=== PATIENT | male | born 1945 | race Caucasian/White ===

== ENCOUNTER 2022-07-12 14:56 | Inpatient (IN) | payer MEDICARE, BC ==
--- NOTE | 2022-07-12 15:38 | ED ---
General Adult HPI - General Chief complaint: Fall Stated complaint: Fall/shoulder rib injury Time Seen by Provider: 07/12/22 15:07 Source: patient Mode of arrival: EMS Limitations: no limitations - History of Present Illness Initial comments: Dictation was produced using codesy dictation software. please excuse any grammatical, word or spelling errors. Chief Complaint: 77-year-old male presents emergency department after fall. History of Present Illness: Patient 77-year-old male presents emergency department after fall. Patient was walking down some steps to the garage when he missed step. He fell landing sideways. He landed on his left side. After the fall he spit complaining of right hip pain, left upper back pain, left shoulder pain and left elbow pain. Denies any head injury. No loss of consciousness. Does not take any anticoagulation medications. Denies any abdominal pain. The ROS documented in this emergency department record has been reviewed and confirmed by me. Those systems with pertinent positive or negative responses have been documented in the HPI. All other systems are other negative and/or no ncontributory. PHYSICAL EXAM: General Impression: Alert and oriented x3, not in acute distress HEENT: Normocephalic atraumatic, extra-ocular movements intact, pupils equal and reactive to light bilaterally, mucous membranes moist. Cardiovascular: Heart regular rate and rhythm Chest: Able to complete full sentences, no retractions, no tachypnea Abdomen: abdomen soft, non-tender, non-distended, no organomegaly Musculoskeletal: Pulses present and equal in all extremities, no peripheral edema, or tenderness to the left elbow and left shoulder. No palpable tenderness to the left humerus left forearm left wrist Motor: no focal deficits noted Neurological: CN II-XII grossly intact, no focal motor or sensory deficits noted Skin: Intact with no visualized rashes Psych: Normal affect and mood ED course: 77-year-old well-appearing male presents emergency department after a trip and fall down one to 2 steps. Does not take any correlation medications. Patient is not a candidate for trauma level activation. Vital signs upon arrival are within acceptable limits. Patient in no acute distress at the bedside. No obvious traumatic abnormality seen on physical exam. Nursing notes and chart review was performed EKG interpreted by me: Ventricular rate 81, sinus rhythm,. Interval to 36, QRS 77, QTc 412. No NV prolongation, no QTC prolongation, no ST or T-wave changes noted. Overall, this EKG is unremarkable Was pt. sent in by a medical professional or institution (YARIEL Shirley, CONTROL OPERATOR, urgent care, hospital, or correction...) When possible be specific @ -No Did you speak to anyone other than the patient for history (EMS, parent, family, police, friend...)? What history was obtained from this source @ - at the bedside Did you review nursing and triage notes (agree or disagree)? Why? @ -I reviewed and agree with nursing and triage notes Were old charts reviewed (outside hosp., previous admission, EMS record, old EKG, old radiological studies, urgent care reports/EKG's, correction records)? Report findings @ -No old charts were reviewed Differential Diagnosis (chest pain, altered mental status, abdominal pain women, abdominal pain men, vaginal bleeding, musculoskeletal, weakness, fever, dyspnea, syncope, headache, dizziness, GI bleed, back pain, seizure, CVA, palpatations, mental health)? @ -Arm fracture, arm sprain, shoulder dislocation, head contusion, intracranial bleed, cervical spine fracture, rib fracture, chest contusion EKG interpreted by me (3pts min.). @ -see above X-rays interpreted by me (1pt min.). @ -Abdomen pelvis x-ray shows no acute processes. Her femur x-rays negative. Elbow x-ray is nonacute. Shoulder x-ray shows acute comminuted proximal humerus fracture. CT interpreted by me (1pt min.). @ -CT The scan of the head and C-spine shows no acute processes. There are acute left anterior lateral ribs 4 through 7 fractures without displacement. U/S interpreted by me (1pt. min.). @ -None done What testing was considered but not performed or refused? (CT, X-rays, U/S, labs)? Why? @ -See above What meds were considered but not given or refused? Why? @ -See above Did you discuss the management of the patient with other professionals (professionals i.e. YARIEL Shirley, CONTROL OPERATOR, lab, RT, psych nurse, social sciences instructor, coordinate measuring machine technician, teacher, minesweeping officer, family independence case manager)? Give summary @ -Case discussed with on-call trauma surgeon who will accept patient's care. Was smoking cessation discussed for >3mins.? @ -No Was critical care preformed (if so, how long)? @ -No Were there social determinants of health that impacted care today? How? (Homelessness, low income, unemployed, alcoholism, drug addiction, transportation, low edu. Level, literacy, decrease access to med. care, detention, rehab)? @ -No Was there de-escalation of care discussed even if they declined (Discuss DNR or withdrawal of care, Hospice)? DNR status @ -No What co-morbidities impacted this encounter? (DM, HTN, Smoking, COPD, CAD, Cancer, CVA, ARF, Chemo, Hep., AIDS, mental health diagnosis, sleep apnea, morbid obesity)? @ -None Was patient admitted / discharged? Hospital course, mention meds given and route, prescriptions, significant lab abnormalities, going to OR and other pertinent info. @ -77-year-old male with multiple comorbidities presents to the ER after trip and fall. He has comminuted left proximal humeral fracture and [id number] rib fractures. Patient in significant pain. Patient high risk for worsening pulmonary function due to injuries. Patient grew for admission. Admitted to trauma surgery team. Rib fracture order set ordered. Undiagnosed new problem with uncertain prognosis? @ -No Drug Therapy requiring intensive monitoring for toxicity (Heparin, Nitro, Insulin, Cardizem)? @ -No Were any procedures done? @ -splint application Diagnosis/symptom? Acute, or Chronic, or Acute on Chronic? Uncomplicated (without systemic symptoms) or Complicated (systemic symptoms)? @ -1. Acute fall, 2. Comminuted proximal humerus fracture on the left, 3. Acute complicated rib fractures 4 through 7 Side effects of treatment? @ -No Exacerbation, Progression, or Severe Exacerbation? @ -No Poses a threat to life or bodily function? How? (Chest pain, [place], [place], pneumonia, PE, COPD, DKA, ARF, appy, cholecystitis, CVA, Diverticulitis, Homicidal, Suicidal, threat to staff... and all critical care pts) @ -Yes - Related Data Home Medications Medication Instructions Recorded Confirmed Atorvastatin [Lipitor] 40 mg PO HS 07/12/22 07/12/22 Clopidogrel [Plavix] 75 mg PO DAILY 07/12/22 07/12/22 Furosemide [Lasix] 40 mg PO Q2D 07/12/22 07/12/22 Gabapentin [Neurontin] 300 mg PO TID PRN 07/12/22 07/12/22 Meloxicam [Mobic] 7.5 mg PO DAILY 07/12/22 07/12/22 Memantine [Namenda] 10 mg PO BID 07/12/22 07/12/22 Metoprolol Tartrate [Lopressor] 12.5 mg PO BID 07/12/22 07/12/22 Omeprazole [PriLOSEC] 40 mg PO DAILY 07/12/22 07/12/22 PARoxetine HCL 30 mg PO DAILY 07/12/22 07/12/22 Pioglitazone [Actos] 30 mg PO DAILY 07/12/22 07/12/22 Semaglutide [Ozempic] 1 mg SQ MO 07/12/22 07/12/22 Trospium Chloride [Sanctura XR] 60 mg PO DAILY 07/12/22 07/12/22 Turmeric Root Extract [Turmeric] 500 mg PO HS 07/12/22 07/12/22 Ubidecarenone [Co Q-10] 300 mg PO HS 07/12/22 07/12/22 Vitamin B Complex 1 cap PO DAILY 07/12/22 07/12/22 lisinopriL [Zestril] 10 mg PO HS 07/12/22 07/12/22 Allergies Allergy/AdvReac Type Severity Reaction Status Date / Time No Known Allergies Allergy Verified 07/12/22 16:10 Review of Systems ROS Statement: Those systems with pertinent positive or pertinent negative responses have been documented in the HPI. ROS Other: All systems not noted in ROS Statement are negative. Past Medical History Past Medical History: Diabetes Mellitus, Hyperlipidemia Additional Past Medical History / Comment(s): stroke 2016 History of Any Multi-Drug Resistant Organisms: None Reported Past Surgical History: Prostate Surgery Past Psychological History: No Psychological Hx Reported Smoking Status: Never smoker Past Alcohol Use History: None Reported Past Drug Use History: None Reported General Exam Limitations: no limitations Course Vital Signs 07/12/22 07/12/22 07/12/22 14:59 16:30 18:49 Temperature 98 F Pulse Rate 73 71 84 Respiratory 18 18 16 Rate Blood Pressure 161/85 149/73 160/79 O2 Sat by Pulse 95 98 95 Oximetry 07/12/22 19:39 Temperature Pulse Rate 84 Respiratory 16 Rate Blood Pressure 164/88 O2 Sat by Pulse 95 Oximetry Medical Decision Making - Lab Data Result diagrams: 07/12/22 15:36 07/12/22 17:11 Lab Results 07/12/22 07/12/22 Range/Units 15:36 17:11 WBC 10.1 (3.8-10.6) k/uL RBC 4.80 (4.30-5.90) m/uL Hgb 14.8 (13.0-17.5) gm/dL Hct 45.5 (39.0-53.0) % MCV 94.9 (80.0-100.0) fL MCH 31.0 (25.0-35.0) pg MCHC 32.6 (31.0-37.0) g/dL RDW 14.1 (11.5-15.5) % Plt Count 255 (150-450) k/uL MPV 8.3 Neutrophils % 76 % Lymphocytes % 14 % Monocytes % 6 % Eosinophils % 1 % Basophils % 1 % Neutrophils # 7.7 (1.3-7.7) k/uL Lymphocytes # 1.4 (1.0-4.8) k/uL Monocytes # 0.6 (0-1.0) k/uL Eosinophils # 0.1 (0-0.7) k/uL Basophils # 0.1 (0-0.2) k/uL Sodium 137 (137-145) mmol/L Potassium 4.0 (3.5-5.1) mmol/L Chloride 102 (98-107) mmol/L Carbon Dioxide 26 (22-30) mmol/L Anion Gap 9 mmol/L BUN 17 (9-20) mg/dL Creatinine 0.76 (0.66-1.25) mg/dL Est GFR (CKD-EPI)AfAm >90 (>60 ml/min/1.73 sqM) Est GFR (CKD-EPI)NonAf 89 (>60 ml/min/1.73 sqM) Glucose 161 H (74-99) mg/dL Calcium 8.7 (8.4-10.2) mg/dL Total Bilirubin 0.7 (0.2-1.3) mg/dL AST 29 (17-59) U/L ALT 28 (4-49) U/L Alkaline Phosphatase 92 (38-126) U/L Total Protein 6.6 (6.3-8.2) g/dL Albumin 4.1 (3.5-5.0) g/dL Lipase 31 (23-300) U/L Disposition Clinical Impression: Fall, Multiple trauma Disposition: ADMITTED IP TO THIS [facility] Condition: Serious Referrals: None,Stated [REFERRING] - 1-2 days Decision Time: 20:20
[2022-07-12 15:56] LABS: Basophils # (A) 0.1 k/uL (0-0.2); Basophils % (A) 1 %; Eosinophils # (A) 0.1 k/uL (0-0.7); Eosinophils % (A) 1 %; HCT 45.5 % (39.0-53.0); HGB 14.8 gm/dL (13.0-17.5); Lymphocytes # (A) 1.4 k/uL (1.0-4.8); Lymphocytes % (A) 14 %; MCHC 32.6 g/dL (31.0-37.0); MCV 94.9 fL (80.0-100.0); Mean Platelet Volume 8.3; Monocytes # (A) 0.6 k/uL (0-1.0); Monocytes % (A) 6 %; Neutrophils # (A) 7.7 k/uL (1.3-7.7); Neutrophils % (A) 76 %; Platelet Count 255 k/uL (150-450); RDW 14.1 % (11.5-15.5); WBC 10.1 k/uL (3.8-10.6)
[2022-07-12] MEDS ORDERED: MORPHINE SULFATE 4 MG/ML SYRINGE IV STA (16:22)
--- NOTE | 2022-07-12 16:35 | XR ---
EXAMINATION TYPE: XR shoulder complete LT DATE OF EXAM: 07/12/2022 4:30 PM INDICATION: Patient age:Male; 77 years old; Reason for study: fall; COMPARISON: None TECHNIQUE: The left shoulder was examined in AP, internally rotated and scapular Y projections. . FINDINGS: Acute comminuted mildly displaced fracture of the proximal humerus from the neck into the greater tub erosity with shortening. No dislocation. The remaining portions of the visualized chest are unremarka ble. IMPRESSION: Acute comminuted proximal humerus fracture.
--- NOTE | 2022-07-12 16:36 | XR ---
EXAMINATION TYPE: XR elbow complete LT DATE OF EXAM: 07/12/2022 4:30 PM INDICATION: Patient age:Male; 77 years old; Reason for study: fall; PHH. COMPARISON: None TECHNIQUE: The left elbow was examined in AP, lateral, and oblique projections. FINDINGS: No evidence of any acute osseous pathology, joint dislocation, or soft tissue swelling is n oted. No evidence of joint effusion is present. IMPRESSION: No evidence of acute fracture.
[2022-07-12 17:34] LABS: ALT 28 U/L (4-49); AST 29 U/L (17-59); African American GFR (CKD) >90 (>60 ml/min/1.73 sqM); Albumin 4.1 g/dL (3.5-5.0); Alkaline Phosphatase 92 U/L (38-126); Anion Gap 9 mmol/L; Blood Urea Nitrogen 17 mg/dL (9-20); Calcium 8.7 mg/dL (8.4-10.2); Carbon Dioxide 26 mmol/L (22-30); Chloride 102 mmol/L (98-107); Glucose 161 mg/dL (74-99); Lipase 31 U/L (23-300); Non-African American GFR(CKD) 89 (>60 ml/min/1.73 sqM); Sodium 137 mmol/L (137-145); Total Bilirubin 0.7 mg/dL (0.2-1.3); Total Protein 6.6 g/dL (6.3-8.2)
[2022-07-12] MEDS ORDERED: HYDROmorphone 0.5 MG/0.5 ML SYRINGE IVP STA ×2 (17:49→20:08)
--- NOTE | 2022-07-12 19:22 | XR ---
EXAMINATION TYPE: XR Hip RT and AP Pelvis, XR femur RT DATE OF EXAM: 07/12/2022 7:16 PM INDICATION: Patient age:Male; 77 years old; Reason for study: fall; COMPARISON: None. TECHNIQUE: The right hip was examined in the frontal and lateral projections and frontal and lateral views of the femur. FINDINGS: Surgical clips project over the pelvis. Mild degeneration with osteophyte formation of the acetabulum. Visualized portions of the femur do not demonstrate a fracture. The osseous structures ar e intact. The knee demonstrates mild to moderate degeneration with osteophyte formation of the patell a and tibial plateau.. IMPRESSION: 1. No acute process. 2. Mild to moderate right knee and right hip osteoarthrosis.
--- NOTE | 2022-07-12 19:39 | CT ---
EXAMINATION TYPE: CT brain cspine wo con CT DLP: 2561.7 (combined) mGycm, Automated exposure control for dose reduction was used. DATE OF EXAM: 07/12/2022 7:26 PM COMPARISON: None. CLINICAL INDICATION:Male, 77 years old with history of fall; fall TECHNIQUE: Brain: Multiple axial CT images of the brain were obtained without IV contrast. Cspine: Axial CT images from the skull base to the inferior aspect of T2 we obtained without intraven ous contrast. Coronal and sagittal reformatted images were also reviewed. FINDINGS: Brain: Extra-axial spaces: No abnormal extra-axial fluid collections. Ventricular system: Dilatation in proportion to cerebral atrophy. Cerebral parenchyma: Cerebral atrophy. No acute intraparenchymal hemorrhage or mass effect. The osei -white junction is well differentiated. Scattered hypoattenuating areas are seen within the white mat ter. Cerebellum: Unremarkable. Mass effect: No evidence of midline shift. Intracranial vasculature: unremarkable Soft tissues: Normal. Calvarium/osseous structures: No depressed skull fracture. Paranasal sinuses and mastoid air cells: Clear. Visualized orbits: Bilateral aphakia Cervical spine: Fracture: None. Osseous structures: Multilevel degenerative disc disease changes with endplate spurring and disc oste ophyte complex's. Vertebral alignment: Within normal limits. Spinal canal/Neural Foramina: Disc osteophyte complexes at C5-C6 and C6-C7 with at least mild spinal canal stenosis. Facet joint uncovertebral joint arthropathy scattered throughout the cervical spine w ith varying degrees of neural foraminal stenosis. Neck soft tissues: Prevertebral soft tissues are within normal limits. Other: The airway is patent. The lung apices are clear. IMPRESSION: 1. No acute intracranial process. 2. Nonspecific white matter changes, likely secondary to chronic small vessel ischemic disease. 3. No evidence of cervical spine fracture. 4. Mild multilevel degenerative disc disease.
--- NOTE | 2022-07-12 19:45 | CT ---
EXAMINATION TYPE: CT chest wo con CT DLP: 2561.7 (combined) mGycm, Automated exposure control for dose reduction was used. DATE OF EXAM: 07/12/2022 7:26 PM COMPARISON: None CLINICAL INDICATION:Male, 77 years old with history of fall, pain after fall TECHNIQUE: Multiple axial images were obtained through the chest. Sagittal and coronal reformats were created for review. Contrast used: none. Oral contrast used: none. FINDINGS: LUNGS/ PLEURA: Thickening of interlobular septa. No focal consolidation, or pneumothorax. No pleural fusion. AIRWAY: Patent and unremarkable. HEART: Size within normal limits. MEDIASTINUM: No gross evidence of adenopathy. VASCULATURE: No aortic aneurysm. Mild atherosclerosis of the arterial vasculature. MUSCULOSKELETAL: Acute fractures through left ribs 4 through 7 without evidence of displacement. SOFT TISSUES/LYMPH NODES: Mild gynecomastia changes bilaterally. LOWER NECK: No significant findings. UPPER ABDOMEN: Calcified gallstone present. Few scattered colonic diverticula. IMPRESSION: 1. Acute left anterior lateral ribs 4 through 7 fractures without displacement. 2. Mild cardiomegaly with pulmonary vascular congestion correlate with serum BNP. 3. Cholelithiasis.
[2022-07-12] MEDS ORDERED: NALOXONE 0.4 MG/ML 1 ML VIAL IV PRN (20:14)
[2022-07-12] MEDS ORDERED: MORPHINE SULFATE 2 MG/ML SYRINGE IVP PRN (20:14)
[2022-07-12 21:04] LABS: Glucose,Whole Blood 157 mg/dL (70-110)
[2022-07-12] MEDS: MORPHINE SULFATE 4 MG/ML SYRINGE IVP PRN (22:31)
[2022-07-13] MEDS: MORPHINE SULFATE 4 MG/ML SYRINGE IVP PRN ×4 (03:01→20:39)
[2022-07-13 05:58] LABS: Glucose,Whole Blood 195 mg/dL (70-110)
[2022-07-13 07:07] LABS: Basophils # (A) 0.1 k/uL (0-0.2); Basophils % (A) 1 %; Eosinophils % (A) 0 %; HCT 44.5 % (39.0-53.0); HGB 14.3 gm/dL (13.0-17.5); Lymphocytes % (A) 7 %; MCH 31.1 pg (25.0-35.0); MCV 97.3 fL (80.0-100.0); Mean Platelet Volume 8.2; Monocytes # (A) 0.7 k/uL (0-1.0); Monocytes % (A) 5 %; Neutrophils # (A) 11.7 k/uL (1.3-7.7); Neutrophils % (A) 85 %; Platelet Count 291 k/uL (150-450); RBC 4.58 m/uL (4.30-5.90); RDW 14.2 % (11.5-15.5); WBC 13.8 k/uL (3.8-10.6)
[2022-07-13] MEDS ORDERED: GABAPENTIN 300 MG CAP PO PRN (09:33)
[2022-07-13 11:50] LABS: Glucose,Whole Blood 186 mg/dL (70-110)
--- NOTE | 2022-07-13 12:05 | P.CNPUL ---
History of Present Illness Consult date: 07/13/22 Chief complaint: rib fracture History of present illness: Patient 77-year-old male presents emergency department after fall. Patient was walking down some steps to the garage when he missed step. He fell landing sideways. He landed on his left side. After the fall he complained of right hip pain, left upper back pain, left shoulder pain and left elbow pain. Denies any head injury. No loss of consciousness. Does not take any anticoagulation medications. Denies any abdominal pain. No other the patient has history of frontal lobe CVA and history of dementia and the patient is considered to be at high risk of falls. The patient has had previous falls in the past. No head injury. No altered mentation this point in time. His pain is around 4 out of 10 in severity. The patient has undergone further investigation the patient was found to have no acute abnormalities and the CAT scan of the head and cervical spine. CAT scan of the chest showed acute fractures involving the left anterior lateral ribs 4 through 7 without displacement. There is also mild cardiomegaly and pulmonary vascular congestion. There is also evidence of cholelithiasis. X-ray of the elbow showed no evidence of any acute abnormalities. X-ray of the shoulder showed an acute comminuted fracture involving the proximal humerus. X- ray of the hip showed no acute fractures. The patient had mild to moderate right knee and right hip osteoarthrosis. For now, the left upper extremity is placed in a splint. Orthopedic surgery has been consulted. From the pulmonary standpoint, the patient's currently on room air oxygen. Denies having any significant shortness of breath. The lactic acid level is down to 2.5. Glucose 186. The risk of 15.8 with a hemoglobin of 14.3. Electrodes are all within normal limits. BUN is at 70 with a creatinine of 0.7. LFTs are within normal limits. Review of Systems Constitutional: Reports fatigue, Reports weakness Eyes: denies as per HPI, denies blurred vision, denies bulging eye, denies decreased vision, denies diplopia, denies discharge, denies dry eye, denies irritation, denies itching, denies pain, denies photophobia, denies loss of peripheral vision, denies loss of vision, denies tunnel vision/blind spots Ears: deny: decreased hearing, ear discharge, earache, tinnitus Ears, nose, mouth and throat: Reports as per HPI Breasts: absent: as per HPI, gynecomastia Cardiovascular: Reports as per HPI Respiratory: Reports as per HPI Gastrointestinal: Reports as per HPI Genitourinary: Reports urinary frequency, Reports urinary hesitancy Musculoskeletal: Reports as per HPI (arm and shoulder pain), Reports gait dysf unction, Reports low back pain Musculoskeletal: absent: ankle pain, ankle stiffness, ankle swelling Integumentary: Reports as per HPI Neurological: Reports gait dysfunction, Reports memory loss, Reports motor disturbance, Reports weakness Psychiatric: Reports as per HPI Endocrine: Reports as per HPI Hematologic/Lymphatic: Reports as per HPI Allergic/Immunologic: Reports as per HPI Past Medical History Past Medical History: Cancer, Diabetes Mellitus, Hyperlipidemia, Prostate Disord er Additional Past Medical History / Comment(s): frontal lobe stroke 2015, prostate cancer post radiacl prostatectomy, obesity, Dementia, frequent falls, DM type 2 and hyperlipidemia and hypertension History of Any Multi-Drug Resistant Organisms: None Reported Past Surgical History: Prostate Surgery Additional Past Surgical History / Comment(s): radical prostatectomy 2003 Past Anesthesia/Blood Transfusion Reactions: No Reported Reaction Past Psychological History: No Psychological Hx Reported Smoking Status: Former smoker Past Alcohol Use History: None Reported Past Drug Use History: None Reported Medications and Allergies Home Medications Medication Instructions Recorded Confirmed Type Atorvastatin [Lipitor] 40 mg PO HS 07/12/22 07/12/22 History Clopidogrel [Plavix] 75 mg PO DAILY 07/12/22 07/12/22 History Furosemide [Lasix] 40 mg PO Q2D 07/12/22 07/12/22 History Gabapentin [Neurontin] 300 mg PO TID PRN 07/12/22 07/12/22 History Meloxicam [Mobic] 7.5 mg PO DAILY 07/12/22 07/12/22 History Memantine [Namenda] 10 mg PO BID 07/12/22 07/12/22 History Metoprolol Tartrate [Lopressor] 12.5 mg PO BID 07/12/22 07/12/22 History Omeprazole [PriLOSEC] 40 mg PO DAILY 07/12/22 07/12/22 History PARoxetine HCL 30 mg PO DAILY 07/12/22 07/12/22 History Pioglitazone [Actos] 30 mg PO DAILY 07/12/22 07/12/22 History Semaglutide [Ozempic] 1 mg SQ MO 07/12/22 07/12/22 History Trospium Chloride [Sanctura XR] 60 mg PO DAILY 07/12/22 07/12/22 History Turmeric Root Extract [Turmeric] 500 mg PO HS 07/12/22 07/12/22 History Ubidecarenone [Co Q-10] 300 mg PO HS 07/12/22 07/12/22 History Vitamin B Complex 1 cap PO DAILY 07/12/22 07/12/22 History lisinopriL [Zestril] 10 mg PO HS 07/12/22 07/12/22 History Allergies Allergy/AdvReac Type Severity Reaction Status Date / Time No Known Allergies Allergy Verified 07/12/22 16:10 Physical Exam Vitals: Vital Signs Temp Pulse Pulse Resp BP BP Pulse Ox 07/13/22 08:07 97.8 F 107 H 18 127/74 92 L 07/13/22 04:00 100 20 139/74 97 07/13/22 01:54 97.6 F 92 18 152/73 96 07/13/22 01:00 136/82 07/13/22 00:09 136/78 96 07/13/22 00:00 143/78 96 07/12/22 23:00 18 140/80 95 07/12/22 22:00 20 140/78 94 L 07/12/22 21:00 17 155/80 95 07/12/22 20:30 16 148/75 93 L 07/12/22 20:00 16 164/88 07/12/22 19:39 84 16 164/88 95 07/12/22 18:49 84 16 160/79 95 07/12/22 16:30 71 18 149/73 98 07/12/22 14:59 98 F 73 18 161/85 95 Intake and Output 07/12/22 07/13/22 07/13/22 22:59 06:59 14:59 Other: Voiding Method Urinal Incontinent # Voids 1 Weight 99.79 kg Currently on room air oxygen. No signs of any acute respiratory distress, comfortable and calm, Head exam was generally normal. There was no scleral icterus or corneal arcus. Mucous membranes were moist. Neck was supple and without jugular venous distension, thyromegaly, or carotid bruits. Carotids were easily palpable bilaterally. There was no adenopathy. Lungs sounds are diminished bilaterally. Otherwise clear. Breath sounds equal and symmetrical. No evidence of any flail chest. Cardiac exam revealed the PMI to be normally situated and sized. The rhythm was regular and no extrasystoles were noted during several minutes of auscultation. The first and second heart sounds were normal and physiologic splitting of the second heart sound was noted. There were no murmurs, rubs, clicks, or gallops. Abdominal exam revealed normal bowel sounds. The abdomen was soft, non-tender, and without masses, organomegaly, or appreciable enlargement of the abdominal aorta. Extremities revealed that the patient's left upper external he has been placed in a splint, pulses are equal and symmetrical in all 4 extremities. Examination of the skin revealed no evidence of significant rashes, suspicious appearing nevi or other concerning lesions. Neurologically, the patient is slow in his speech. Occasionally stutters. His memory isn't impaired. No focal neurological deficits. Results - Laboratory Findings CBC and BMP: 07/13/22 06:22 07/12/22 17:11 Abnormal lab findings: Abnormal Labs 07/12/22 07/12/22 07/13/22 17:11 20:52 05:57 WBC Neutrophils # Glucose 161 H POC Glucose (mg/dL) 157 H 195 H Plasma Lactic Acid Luis 07/13/22 07/13/22 06:22 06:22 WBC 13.8 H Neutrophils # 11.7 H Glucose POC Glucose (mg/dL) Plasma Lactic Acid Luis 3.7 H* - Diagnostic Findings Chest x-ray: image reviewed CT scan - chest: image reviewed Assessment and Plan Plan: Acute fall Traumatic left-sided rib fractures, nondisplaced, fourth through seventh Chest wall pain secondary to above Left humeral fracture History of frontal CVA and dementia. The patient is considered to be at high risk of falls Mild lactic acidosis, improving Diabetes mellitus type 2 History of prostate cancer with previous prostatectomy Hypertension Hyperlipidemia Plan Provide the patient adequate pain control with a combination of Toradol and morphine if needed Provide patient incentive spirometer Orthopedic surgery regarding left humeral fracture Keep the left upper extremity Resume all medications Heparin subcu portably prophylaxis We'll continue to follow.
[2022-07-13] MEDS: HEPARIN SODIUM,PORCINE/PF 5,000 UNIT/0.5 ML SYRINGE SQ SCH ×3 (12:10→23:05)
[2022-07-13] MEDS: MEMANTINE 10 MG TAB PO SCH ×2 (12:10→20:21)
[2022-07-13] MEDS: KETOROLAC 15 MG/ML 1 ML VIAL IVP SCH ×3 (12:10→23:04)
[2022-07-13] MEDS: FUROSEMIDE 40 MG TAB PO SCH ×2 (12:10→12:52)
--- NOTE | 2022-07-13 13:56 | P.GSHP ---
History of Present Illness H&P Date: 07/13/22 CHIEF COMPLAINT: Fall with left-sided rib pain and arm pain HISTORY OF PRESENT ILLNESS: This is a 77-year-old male presented to the hospital after a fall in his parents garage. Patient reports that he has trouble with his left leg and it gave out. He fell down 3 steps landing on cement on the lef t side of his body. He reports that he had pain in left rib cage, hip back and left arm. He denies hitting his head. Denies any loss of consciousness. Patient had a left shoulder x-ray completed showing an acute comminuted proximal humerus fracture. And computed tomography scan of the chest that showed evidence of acute left anterior lateral ribs 4 through 7 fractures without displacement. Computed tomography scan of the brain completed showing no acute changes. Patient has been admitted to the trauma service. Patient denies abdominal pain. Denies any nausea or vomiting. He was able to eat breakfast. He is on room air satting at 92%. PAST MEDICAL HISTORY: See list. History of CVA and dementia, chronic back pain and degenerative disc disease PAST SURGICAL HISTORY: See list. MEDICATIONS: See list. ALLERGIES: See list. SOCIAL HISTORY: No illicit drug use. REVIEW OF SYSTEMS: CONSTITUTIONAL: Denies fever or chills. HEENT: Denies blurred vision, vision changes, or eye pain. Denies hemoptysis ENDOCRINE: Denies heat or cold intolerance. CARDIOVASCULAR: Denies chest pain or pressure. RESPIRATORY: No shortness of breath. GASTROINTESTINAL: Denies abdominal pain. Denies nausea or vomiting. NEURO: Denies history of seizures. PSYCH: No depression or suicidal ideation HEMATOLOGIC: Denies bleeding disorders. LYMPHATIC: The patient denies any lumps and bumps around the neck. GENITOURINARY: Denies any blood in urine or increased urinary frequency. MUSCULOSKELETAL: Denies myalgias. Denies joint swelling. Denies decreased range of motion beyond patients baseline. SKIN: Denies pruitis. Denies rash. PHYSICAL EXAM: VITAL SIGNS: Reviewed GENERAL: Well-developed in no acute distress. HEENT: No sclera icterus. Extraocular movements grossly intact. Moist buccal mucosa. Head is atraumatic, normocephalic. Hears conversational speech. No nasal drainage. NECK: Supple without lymphadenopathy. CHEST: Non-labored respirations and equal bilateral excursions. CARDIOVASCULAR: Palpable 2+ radial pulses. ABDOMEN: Soft. Nondistended. Nontender MUSCULOSKELETAL: No clubbing or cyanosis. NEUROLOGIC: No focal or lateralizing signs. Cranial nerves II through XII grossly intact. PSYCH: Appropriate affect. Alert and oriented to person, place and time. SKIN: Well perfused. Good skin turgor. Extremities: Left arm is in a sling. +2 radial pulse LABORATORY DATA: WBC 10.1 up to 13.8 Hgb 14.3 platelets 291 Sodium is 137 potassium is 4.0 creatinine 0.76 Glucose 186 Lactic acid 3.7 down to 2.5 Lipase 31 IMAGING: Shoulder x-ray left acute comminuted proximal humerus fracture Left elbow x-ray no evidence of acute fracture X-ray of the right hip and pelvis no acute process. Mild to moderate right knee and right hip osteoarthrosis Computed tomography scan of the head and C-spine no acute intracranial process. Nonspecific white matter changes, likely secondary to chronic small vessel ischemic disease. No evidence of cervical spine fracture. Mild multilevel degenerative disc disease. Computed tomography scan of the chest acute left anterior lateral ribs 4 through 7 fractures without displacement. Mild cardiomegaly with pulmonary vascular congestion correlate with serum BNP. Cholelithiasis. ASSESSMENT: 1. Acute fall with trauma to ribs and left 2. Anterior nondisplaced Left rib fractures 4 through 7 secondary to fall 3. Left humeral fracture secondary to fall 4. History of CVA and dementia 5. Mildly elevated lactic acid 6. History of diabetes mellitus 7. History of hypertension 8. Hyperlipidemia 9. History of prostate cancer with previous prostatectomy 11. Leukocytosis PLAN: -Continue pain management -Encouraged patient to use incentive spirometer -Toradol added for pain control -Consult pulmonary service regarding rib fractures -Consult orthopedic service regarding left humeral fracture -Consult medicine service for medical management -Consult pain service -Continue regular diet -Repeat chest x-ray in a.m. -DVT prophylaxis subcu heparin and GI prophylaxis Protonix Physician Driver Salesman note has been reviewed by physician. Signing provider agrees with the documented findings, assessment, and plan of care. Past Medical History Past Medical History: Cancer, Diabetes Mellitus, Hyperlipidemia, Prostate Disorder Additional Past Medical History / Comment(s): frontal lobe stroke 2016, prostate cancer post radiacl prostatectomy, obesity, Dementia, frequent falls, DM type 2 and hyperlipidemia and hypertension History of Any Multi-Drug Resistant Organisms: None Reported Past Surgical History: Prostate Surgery Additional Past Surgical History / Comment(s): radical prostatectomy 2003 Past Anesthesia/Blood Transfusion Reactions: No Reported Reaction Past Psychological History: No Psychological Hx Reported Smoking Status: Former smoker Past Alcohol Use History: None Reported Past Drug Use History: None Reported Medications and Allergies Home Medications Medication Instructions Recorded Confirmed Type Atorvastatin [Lipitor] 40 mg PO HS 07/12/22 07/12/22 History Clopidogrel [Plavix] 75 mg PO DAILY 07/12/22 07/12/22 History Furosemide [Lasix] 40 mg PO Q2D 07/12/22 07/12/22 History Gabapentin [Neurontin] 300 mg PO TID PRN 07/12/22 07/12/22 History Meloxicam [Mobic] 7.5 mg PO DAILY 07/12/22 07/12/22 History Memantine [Namenda] 10 mg PO BID 07/12/22 07/12/22 History Metoprolol Tartrate [Lopressor] 12.5 mg PO BID 07/12/22 07/12/22 History Omeprazole [PriLOSEC] 40 mg PO DAILY 07/12/22 07/12/22 History PARoxetine HCL 30 mg PO DAILY 07/12/22 07/12/22 History Pioglitazone [Actos] 30 mg PO DAILY 07/12/22 07/12/22 History Semaglutide [Ozempic] 1 mg SQ MO 07/12/22 07/12/22 History Trospium Chloride [Sanctura XR] 60 mg PO DAILY 07/12/22 07/12/22 History Turmeric Root Extract [Turmeric] 500 mg PO HS 07/12/22 07/12/22 History Ubidecarenone [Co Q-10] 300 mg PO HS 07/12/22 07/12/22 History Vitamin B Complex 1 cap PO DAILY 07/12/22 07/12/22 History lisinopriL [Zestril] 10 mg PO HS 07/12/22 07/12/22 History Allergies Allergy/AdvReac Type Severity Reaction Status Date / Time No Known Allergies Allergy Verified 07/12/22 16:10 Surgical - Exam Vital Signs Temp Pulse Resp BP Pulse Ox 98 F 73 18 161/85 95 07/12/22 14:59 07/12/22 14:59 07/12/22 14:59 07/12/22 14:59 07/12/22 14:59 Results - Labs 07/13/22 06:22 07/12/22 17:11 Abnormal Lab Results - Last 24 Hours (Table) 07/12/22 07/12/22 07/13/22 Range/Units 17:11 20:52 05:57 WBC (3.8-10.6) k/uL Neutrophils # (1.3-7.7) k/uL Glucose 161 H (74-99) mg/dL POC Glucose (mg/dL) 157 H 195 H (70-110) mg/dL Plasma Lactic Acid Luis (0.7-2.0) mmol/L 07/13/22 07/13/22 Range/Units 06:22 06:22 WBC 13.8 H (3.8-10.6) k/uL Neutrophils # 11.7 H (1.3-7.7) k/uL Glucose (74-99) mg/dL POC Glucose (mg/dL) (70-110) mg/dL Plasma Lactic Acid Luis 3.7 H* (0.7-2.0) mmol/L Diabetes panel 07/12/22 Range/Units 17:11 Sodium 137 (137-145) mmol/L Potassium 4.0 (3.5-5.1) mmol/L Chloride 102 (98-107) mmol/L Carbon Dioxide 26 (22-30) mmol/L BUN 17 (9-20) mg/dL Creatinine 0.76 (0.66-1.25) mg/dL Glucose 161 H (74-99) mg/dL Calcium 8.7 (8.4-10.2) mg/dL AST 29 (17-59) U/L ALT 28 (4-49) U/L Alkaline Phosphatase 92 (38-126) U/L Total Protein 6.6 (6.3-8.2) g/dL Albumin 4.1 (3.5-5.0) g/dL Calcium panel 07/12/22 Range/Units 17:11 Calcium 8.7 (8.4-10.2) mg/dL Albumin 4.1 (3.5-5.0) g/dL Pituitary panel 07/12/22 Range/Units 17:11 Sodium 137 (137-145) mmol/L Potassium 4.0 (3.5-5.1) mmol/L Chloride 102 (98-107) mmol/L Carbon Dioxide 26 (22-30) mmol/L BUN 17 (9-20) mg/dL Creatinine 0.76 (0.66-1.25) mg/dL Glucose 161 H (74-99) mg/dL Calcium 8.7 (8.4-10.2) mg/dL Adrenal panel 07/12/22 Range/Units 17:11 Sodium 137 (137-145) mmol/L Potassium 4.0 (3.5-5.1) mmol/L Chloride 102 (98-107) mmol/L Carbon Dioxide 26 (22-30) mmol/L BUN 17 (9-20) mg/dL Creatinine 0.76 (0.66-1.25) mg/dL Glucose 161 H (74-99) mg/dL Calcium 8.7 (8.4-10.2) mg/dL Total Bilirubin 0.7 (0.2-1.3) mg/dL AST 29 (17-59) U/L ALT 28 (4-49) U/L Alkaline Phosphatase 92 (38-126) U/L Total Protein 6.6 (6.3-8.2) g/dL Albumin 4.1 (3.5-5.0) g/dL
--- NOTE | 2022-07-13 14:21 | P.CONS ---
History of Present Illness - Reason for Consult Consult date: 07/13/22 Medical management trauma admission secondary to fall - History of Present Illness This is a 77-year-old male who presented to the emergency department after falling mechanically in the garage after missing a step and his left leg giving out on him causing him to fall and landed directly onto his arm, left side, and left leg. Patient was admitted under trauma services for a fall and was noted to have multiple left-sided rib fractures on chest CT anteriorly of the lateral ribs 4 through 7 without any displacement. Patient also had multiple other imagings done including a shoulder x-ray which shows an acute comminuted proximal humerus fracture in which orthopedics has been consulted and pending. Patient continues with an Patrick wrap and sling at this time. Patient knee and other x-rays were negative. Patient reports he sees Dr. Layton in the outpatient setting with a past medical history of CVA, dementia, frequent falls, diabetes mellitus, hyperlipidemia, hypertension, frontal lobe strokes 3, prostate cancer. Patient reports he was a former smoker and denies any other illicit drug use or alcohol use. Labs reviewed on admission showed a WBC of 10.1, hemoglobin 14.8, platelets 255, sodium 137, potassium 4.0, creatinine 0.76, blood sugars mildly elevated, lipase was negative at 31. Patient did have a lactic acid this morning of 3.7 and repeat is 2.5. Patient is requiring oxygen at 4 L and does not normally wear oxygen in the outpatient setting. Patient is reporting immense pain on his left side including his left shoulder. PT/OT to evaluate the patient. Patient also had chest CT that was done which showed acute left anterior lateral ribs 4 through 7 fractures without displacement, mild cardiomegaly with pulmonary vascular congestion to correlate with a serum BNP cholelithiasis, and initially with concerns of a pulmonary contusion and pulmonary was consulted for this reason. Will obtain a BNP and hold off on excessive fluids at this time. Would recommend follow-up labs and will await BNP. Review Of Systems: Constitutional: No fever, no chills, no night sweats. No weight change. No weakness, fatigue or lethargy. No daytime sleepiness. EENT: No headache. No blurred vision or double vision, no loss of vision. No loss of Hearing, no ringing in the ears, no dizziness. No nasal drainage or congestion. No epistaxis. No sore throat. Lungs: Reports some shortness of breath to rib pain, no cough, no sputum production. No wheezing. Cardiovascular: No chest pain, no lower extremity edema. No palpitations. No paroxysmal nocturnal dyspnea. No orthopnea. No lightheadedness or dizziness. No syncopal episodes. Abdominal: No abdominal pain. No nausea, vomiting. No diarrhea. No constipation. No bloody or tarry stools.. No loss of appetite. Genitourinary: No dysuria, increased frequency, urgency. No urinary retention. Musculoskeletal: No myalgias. rePorts muscle weakness reported frequent falls, reports gait dysfunction, frequent falls. No back pain. No neck pain. Integumentary: No wounds, no lesions. No rash or pruritus. No unusual bruising. No change in hair or nails. Neurologic: No aphasia. No facial droop. No change in mentation. No head injury. No headache. No paralysis. No paresthesia. Psychiatric: No depression. No anxiety. No mood swings. Endocrine: No abnormal blood sugars. No weight change. No excessive sweating or thirst. No cold intolerance. PHYSICAL EXAMINATION: GENERAL: The patient is alert and oriented x3, Well developed, well nourished. Obese HEENT: Pupils are round and equally reacting to light. EOMI. no scleral icterus. No conjunctival pallor. Normocephalic, atraumatic. No pharyngeal erythema. No thyromegaly. CARDIOVASCULAR: S1 and S2 muffled PULMONARY: diminished breath sounds bilaterally with no wheezing or rhonchi noted. ABDOMEN: soft. Nontender on exam. obese. non-distended, normoactive bowel sounds. No palpable organomegaly. MUSCULOSKELETAL: No joint swelling or deformity. Left upper arm in sling and Patrick wrapped currently EXTREMITIES: No cyanosis, clubbing, or pedal edema. NEUROLOGICAL: Gross neurological examination did not reveal any focal deficits. Diffuse weakness SKIN: No rashes. Assessment: Mechanical fall after missing some steps with no loss of consciousness Left anterior lateral rib fractures from 4 through 7 without displacement secondary to fall Left acute comminuted proximal humerus fracture secondary to fall Mild lactic acidosis, most likely reactive secondary to fall Diabetes mellitus, type II History of multiple CVAs of the frontal lobe Dementia history Hypertension history Hyperlipidemia GI prophylaxis DVT prophylaxis Full code Plan: Recommend to continue with current medications and management per general surgery services. Patient was admitted as a trauma secondary to mechanical fall with multiple fractures on the left as well as a left humerus fracture Orthopedics consulted and pending and patient was placed in a sling and recommended keeping that side immobile as much as possible and await orthopedics recommendations Patient with incentive spirometer at the bedside encouraged keeping close by and using at least 10 times every hour while awake Patient did have mildly elevated lactic acidosis, most likely reactive secondary to trauma and will monitor closely. Patient also noted to have some possible pleural effusions as noted on chest CT and would recommend a BNP and will await. Patient denies heart failure history although does take Lasix in the outpatient setting and not completely sure why although does report he takes it sometimes for swelling of the lower extremities. Would strongly recommend physical therapy evaluation and possible ECF as patient is high risk for falls and has been falling more frequently Recommend Accu-Cheks before meals and at bedtime and using sliding scale Home medications will be reviewed and resumed as appropriate Thank you kindly for this consultation. We will continue to follow during hospi talization. The impression and plan of care has been dictated by Kathleen Coombs, nurse practitioner as directed. Dr. Shelley MD I have performed a history and examination and MDM of this patient, discussed the same with the dictator, and agree with the dictator's assessment and plan as written ,documented as a scribe. Based on total visit time, I have performed more than 50% of the visit. Any additional findings or plans will be noted. Past Medical History Past Medical History: Cancer, Diabetes Mellitus, Hyperlipidemia, Prostate Disorder Additional Past Medical History / Comment(s): stroke 2016, prostate cancer History of Any Multi-Drug Resistant Organisms: None Reported Past Surgical History: Prostate Surgery Additional Past Surgical History / Comment(s): radical prostatectomy 2003 Past Anesthesia/Blood Transfusion Reactions: No Reported Reaction Past Psychological History: No Psychological Hx Reported Smoking Status: Former smoker Past Alcohol Use History: None Reported Past Drug Use History: None Reported Medications and Allergies Home Medications Medication Instructions Recorded Confirmed Type Atorvastatin [Lipitor] 40 mg PO HS 07/12/22 07/12/22 History Clopidogrel [Plavix] 75 mg PO DAILY 07/12/22 07/12/22 History Furosemide [Lasix] 40 mg PO Q2D 07/12/22 07/12/22 History Gabapentin [Neurontin] 300 mg PO TID PRN 07/12/22 07/12/22 History Meloxicam [Mobic] 7.5 mg PO DAILY 07/12/22 07/12/22 History Memantine [Namenda] 10 mg PO BID 07/12/22 07/12/22 History Metoprolol Tartrate [Lopressor] 12.5 mg PO BID 07/12/22 07/12/22 History Omeprazole [PriLOSEC] 40 mg PO DAILY 07/12/22 07/12/22 History PARoxetine HCL 30 mg PO DAILY 07/12/22 07/12/22 History Pioglitazone [Actos] 30 mg PO DAILY 07/12/22 07/12/22 History Semaglutide [Ozempic] 1 mg SQ MO 07/12/22 07/12/22 History Trospium Chloride [Sanctura XR] 60 mg PO DAILY 07/12/22 07/12/22 History Turmeric Root Extract [Turmeric] 500 mg PO HS 07/12/22 07/12/22 History Ubidecarenone [Co Q-10] 300 mg PO HS 07/12/22 07/12/22 History Vitamin B Complex 1 cap PO DAILY 07/12/22 07/12/22 History lisinopriL [Zestril] 10 mg PO HS 07/12/22 07/12/22 History Allergies Allergy/AdvReac Type Severity Reaction Status Date / Time No Known Allergies Allergy Verified 07/12/22 16:10 Physical Exam Vitals: Vital Signs Temp Pulse Pulse Resp BP BP Pulse Ox 07/13/22 08:07 97.8 F 107 H 18 127/74 92 L 07/13/22 04:00 100 20 139/74 97 07/13/22 01:54 97.6 F 92 18 152/73 96 07/13/22 01:00 136/82 07/13/22 00:09 136/78 96 07/13/22 00:00 143/78 96 07/12/22 23:00 18 140/80 95 07/12/22 22:00 20 140/78 94 L 07/12/22 21:00 17 155/80 95 07/12/22 20:30 16 148/75 93 L 07/12/22 20:00 16 164/88 07/12/22 19:39 84 16 164/88 95 07/12/22 18:49 84 16 160/79 95 07/12/22 16:30 71 18 149/73 98 07/12/22 14:59 98 F 73 18 161/85 95 Intake and Output 07/12/22 07/13/22 07/13/22 22:59 06:59 14:59 Other: Voiding Method Urinal Incontinent # Voids 1 Weight 99.79 kg Results CBC & Chem 7: 07/13/22 06:22 07/12/22 17:11 Labs: Abnormal Lab Results - Last 24 Hours (Table) 07/12/22 07/12/22 07/13/22 Range/Units 17:11 20:52 05:57 WBC (3.8-10.6) k/uL Neutrophils # (1.3-7.7) k/uL Glucose 161 H (74-99) mg/dL POC Glucose (mg/dL) 157 H 195 H (70-110) mg/dL Plasma Lactic Acid Luis (0.7-2.0) mmol/L 07/13/22 07/13/22 Range/Units 06:22 06:22 WBC 13.8 H (3.8-10.6) k/uL Neutrophils # 11.7 H (1.3-7.7) k/uL Glucose (74-99) mg/dL POC Glucose (mg/dL) (70-110) mg/dL Plasma Lactic Acid Luis 3.7 H* (0.7-2.0) mmol/L
[2022-07-13] MEDS ORDERED: DEXTROSE 50% SYRINGE 50 ML IVP PRN ×2 (14:24)
--- NOTE | 2022-07-13 14:54 | P.PAINPG ---
Objective - Vital Signs Vital signs: Vital Signs Temp 97.6 F 07/13/22 01:54 Pulse 100 07/13/22 04:00 Resp 20 07/13/22 04:00 BP 139/74 07/13/22 04:00 Pulse Ox 97 07/13/22 04:00 FiO2 Intake & Output 07/12/22 07/13/22 07/13/22 18:59 06:59 18:59 Weight 99.79 kg 99.79 kg Other: Voiding Method Urinal Incontinent # Voids 1 - Labs CBC & Chem 7: 07/13/22 06:22 07/12/22 17:11 Labs: Abnormal Lab Results - Last 24 Hours (Table) 07/12/22 07/12/22 07/13/22 Range/Units 17:11 20:52 05:57 WBC (3.8-10.6) k/uL Neutrophils # (1.3-7.7) k/uL Glucose 161 H (74-99) mg/dL POC Glucose (mg/dL) 157 H 195 H (70-110) mg/dL 07/13/22 Range/Units 06:22 WBC 13.8 H (3.8-10.6) k/uL Neutrophils # 11.7 H (1.3-7.7) k/uL Glucose (74-99) mg/dL POC Glucose (mg/dL) (70-110) mg/dL PQRS Measure Charge Sheet Comment: HISTORY OF PRESENT ILLNESS: 77 yr old male as a referral from the ER presents today w severe and chronic LUE and L rib pain secondary to fall in garage for evaluation. Pt states pain level is at 9 /10 in intensity, constant, localized in the L elbow and L side of chest, sore, achy in character without shooting pain. Pain is provoked by any type of movement. Pain is alleviated by IV Dilaudid 0.5mg - 2 mg IVP q4H prn severity of pain, reclining, repositioning and rest. Narcan on file. Will have Trauma Surgery evaluation. Discussed follow up in Pain Clinic upon discharge. PMH: DM II, Hyperlipidemia, CVA (2016) PSH: Prostatectomy s/p Prostate CA SH: Negative x3 FH: Non contributory All: NKDA Meds: See list REVIEW OF ORGAN SYSTEMS: CONSTITUTIONAL: No fevers or chills. No recent weight loss. NEUROLOGICAL: + numbness and tingling along the distal extremities. No seizure disorders or headaches. MUSCULOSKELETAL: + pain PSYCHIATRIC: Denies current depression or suicidal thoughts. Physical Examinations : Constitutional : Cooperative , not in acute distress . Neurologic : Cranial nerve II to XII intact. No focal neurological deficits. Psychiatric : alert & oriented x 3. Matching mood & appropriate affect. Judgment & insight intact. Musculoskeletal : TTP over L ICS 3-8th at midaxillary line, L humerus/ elbow TTP Cervical Spine Motor strength in the deltoid and bic eps: Normal right side. Normal Left side Motor strength biceps and the wrist extensors: Normal right side . Normal left side Motor strength in the triceps muscle: Normal right side. Normal left side Deep tendon reflexes: Normal at the biceps. Normal at Brachioradialis. Normal at triceps Vertebral body tenderness to deep palp ation over Cervical facet loading test: positive bilaterally Spurling test: positive bilaterally Neck distraction test: positive bilaterally Quang sign: positive bilaterally Lumbar spine Motor strength lower extremities ,thigh and legs 5/5 Right side , 5/5 Left side Deep tendon reflexes : Normal Knee Jerk. Normal Ankle Jerk Vertebral body tenderness over Lumbar facet Loading Test: positive Right / positive Left Range of motion of the lumbar spine Flexion 30 degrees, extension 10 degrees Straight Leg Raise test: Left/ Right po sitive at degree Jimbo test: positive right / positive left. Severe tenderness over the Sacroiliac joint on the Right / Left sides Gaenslen test: positive bilaterally Seated flexion test: positive bilaterally. Sacral spine : Severe tenderness over the Sacroiliac joint: right side / left side Range of motion: Flexion of the lumbar spine <60 degrees Range of motion: Extension of the lumbar spine <20 degrees Gaenslen's Test positive Martin's Test positive Jimbo test: positive right side / left side Thigh Thrust Test Sacral Thrust Test Imaging: CT Scan of Chest and L shoulder from 07/12/22 reviewed. L shoulder x ray from 07/12/22 reviewed. Assessment/ Plan : L shoulder and L sided Rib pain d/t L comminuted proximal humerus Fx and Rib 4-7 Fx s/p fall Recommendation of Lidocaine 5% to apply over AA QAM for pain, 12 hrs on/ 12 hrs off. Continue in house pain mgmt. Risks, benefits of procedure discussed and patient verbalized understanding. Admits to aspirin or anti- coagulant use or medical history of diabetes. Protocol for discontinuation/ continuation of medications juan carlos procedure discussed. All questions answered. I have spent greater than 30 minutes on patient care today. Dr Casillas was available by phone for the evaluation of this patient. The time was used to review the medical records including relevant urine studies and Prescription history (MAPs), review of the available imaging, evaluation and examination of the patient, coordination of care with the medical staff and if applicable referring physicians, as well as creation of the medical record - Pain Location Left Chest Non-Pharmacological Interventions: Reduce Environmental Stimuli, Relaxation Technique Pharmacological Interventions: PRN Medication PQRS Narrative: Blood Pressure [Right Arm] 139/74 Blood Pressure 136/82 Pain Intensity [Left Chest] 5 Pain Intensity 0 Pain Scale Used Parker-Bermudez (Faces) Scale Used Numeric (1 - 10) Home Medications: Ambulatory Orders Atorvastatin [Lipitor] 40 mg PO HS 07/12/22 Clopidogrel [Plavix] 75 mg PO DAILY 07/12/22 Furosemide [Lasix] 40 mg PO Q2D 07/12/22 Gabapentin [Neurontin] 300 mg PO TID PRN 07/12/22 Meloxicam [Mobic] 7.5 mg PO DAILY 07/12/22 Memantine [Namenda] 10 mg PO BID 07/12/22 Metoprolol Tartrate [Lopressor] 12.5 mg PO BID 07/12/22 Omeprazole [PriLOSEC] 40 mg PO DAILY 07/12/22 PARoxetine HCL 30 mg PO DAILY 07/12/22 Pioglitazone [Actos] 30 mg PO DAILY 07/12/22 Semaglutide [Ozempic] 1 mg SQ MO 07/12/22 Trospium Chloride [Sanctura XR] 60 mg PO DAILY 07/12/22 Turmeric Root Extract [Turmeric] 500 mg PO HS 07/12/22 Ubidecarenone [Co Q-10] 300 mg PO HS 07/12/22 Vitamin B Complex 1 cap PO DAILY 07/12/22 lisinopriL [Zestril] 10 mg PO HS 07/12/22 Controlled Substance Measures - Controlled Substance Measures Is patient prescribed a controlled substance at discharge?: No
[2022-07-13] MEDS ORDERED: SODIUM CHLORIDE 0.9% 500 ML 500 ML IV ONE (15:47)
--- NOTE | 2022-07-13 16:03 | XR ---
EXAMINATION TYPE: XR chest 1V portable DATE OF EXAM: 07/13/2022 COMPARISON: CT chest on 07/12/2022. HISTORY: Chest trauma. TECHNIQUE: Single frontal view of the chest is obtained. IMPRESSION: There is no focal air space opacity, pleural effusion, or pneumothorax seen. The cardiac silhouette is mildly enlarged and the pulmonary vessels are within normal limits.. The rib fractures seen on the CT examination are not well evaluated on this study. A definitive pneumothorax is not clearly identi fied.
[2022-07-13 16:25] LABS: Glucose,Whole Blood 171 mg/dL (70-110)
[2022-07-13] MEDS: INSULIN ASPART (NovoLOG) 100 UNIT/ML VIAL SQ SCH ×2 (17:19→20:12)
[2022-07-13] MEDS: SODIUM CHLORIDE 0.9% 1,000 ML IV SCH (17:19)
--- NOTE | 2022-07-13 18:29 | P.CNOR ---
History of Present Illness - [facility] Consult date: 07/13/22 History of present illness: The patient is a very pleasant right-hand dominant 77-year-old male with multiple medical problems who is presently admitted to the trauma service. Orthopedics is been consulted for a left proximal humerus fracture. At the time of my evaluation the patient is complaining of left shoulder and elbow pain and right thigh pain. He has no other complaints at this time. Past Medical History Past Medical History: Cancer, Diabetes Mellitus, Hyperlipidemia, Prostate Disor zen Additional Past Medical History / Comment(s): stroke 2016, prostate cancer History of Any Multi-Drug Resistant Organisms: None Reported Past Surgical History: Prostate Surgery Additional Past Surgical History / Comment(s): radical prostatectomy 2003 Past Anesthesia/Blood Transfusion Reactions: No Reported Reaction Past Psychological History: No Psychological Hx Reported Smoking Status: Former smoker Past Alcohol Use History: None Reported Past Drug Use History: None Reported Medications and Allergies Home Medications Medication Instructions Recorded Confirmed Type Atorvastatin [Lipitor] 40 mg PO HS 07/12/22 07/12/22 History Clopidogrel [Plavix] 75 mg PO DAILY 07/12/22 07/12/22 History Furosemide [Lasix] 40 mg PO Q2D 07/12/22 07/12/22 History Gabapentin [Neurontin] 300 mg PO TID PRN 07/12/22 07/12/22 History Meloxicam [Mobic] 7.5 mg PO DAILY 07/12/22 07/12/22 History Memantine [Namenda] 10 mg PO BID 07/12/22 07/12/22 History Metoprolol Tartrate [Lopressor] 12.5 mg PO BID 07/12/22 07/12/22 History Omeprazole [PriLOSEC] 40 mg PO DAILY 07/12/22 07/12/22 History PARoxetine HCL 30 mg PO DAILY 07/12/22 07/12/22 History Pioglitazone [Actos] 30 mg PO DAILY 07/12/22 07/12/22 History Semaglutide [Ozempic] 1 mg SQ MO 07/12/22 07/12/22 History Trospium Chloride [Sanctura XR] 60 mg PO DAILY 07/12/22 07/12/22 History Turmeric Root Extract [Turmeric] 500 mg PO HS 07/12/22 07/12/22 History Ubidecarenone [Co Q-10] 300 mg PO HS 07/12/22 07/12/22 History Vitamin B Complex 1 cap PO DAILY 07/12/22 07/12/22 History lisinopriL [Zestril] 10 mg PO HS 07/12/22 07/12/22 History Allergies Allergy/AdvReac Type Severity Reaction Status Date / Time No Known Allergies Allergy Verified 07/12/22 16:10 Physical Examination The patient is resting in his hospital bed. He is in no apparent distress and is easily able to answer questions. His head is normocephalic and atraumatic. His abdomen is obese. Incision on breathing symmetric chest expansion. His right upper extremities without deformity is nontender to palpation. He has minimal pain with passive range of motion of the right hip or knee. He has mild tenderness diffusely throughout the right thigh. The left leg is without deformity and is nontender to palpation. A focused exam of the left upper extremity was conducted. There was a coaptation splint in place which was removed. He also had a sling in place. There is diffuse swelling and ecchymosis throughout the shoulder upper arm and elbow. He is tenderness diffusely throughout the shoulder, arm, and elbow. His forearm and arm are swollen but soft. His fingers have sensation intact to light touch in the distribution of the median, ulnar, and radial nerves. Motor function is intact throughout the left hand. Results All x-rays were reviewed and show diffuse osteopenia and a left proximal humerus fracture. - Labs Labs: Abnormal Lab Results - Last 24 Hours (Table) 07/12/22 07/13/22 07/13/22 Range/Units 20:52 05:57 06:22 WBC (3.8-10.6) k/uL Neutrophils # (1.3-7.7) k/uL POC Glucose (mg/dL) 157 H 195 H (70-110) mg/dL Plasma Lactic Acid Luis 3.7 H* (0.7-2.0) mmol/L 07/13/22 07/13/22 07/13/22 Range/Units 06:22 11:31 11:48 WBC 13.8 H (3.8-10.6) k/uL Neutrophils # 11.7 H (1.3-7.7) k/uL POC Glucose (mg/dL) 186 H (70-110) mg/dL Plasma Lactic Acid Luis 2.5 H* (0.7-2.0) mmol/L 07/13/22 07/13/22 Range/Units 14:48 16:22 WBC (3.8-10.6) k/uL Neutrophils # (1.3-7.7) k/uL POC Glucose (mg/dL) 171 H (70-110) mg/dL Plasma Lactic Acid Lius 3.5 H* (0.7-2.0) mmol/L H & H 07/12/22 07/13/22 Range/Units 15:36 06:22 Hgb 14.8 14.3 (13.0-17.5) gm/dL Hct 45.5 44.5 (39.0-53.0) % Result Diagrams: 07/13/22 06:22 07/12/22 17:11 Assessment and Plan Assessment: Closed left proximal humerus fracture Plan: I recommend nonsurgical treatment for his left proximal humerus fracture given his age and fracture pattern. He should remain nonweightbearing in a sling at all times except for hygiene. He is cleared to discharge home from an orthopedic standpoint. He will need follow-up in the office in 1 week for x- rays of the left shoulder.
[2022-07-13 20:11] LABS: Glucose,Whole Blood 140 mg/dL (70-110)
[2022-07-13] MEDS: METOPROLOL TARTRATE 12.5 MG TAB PO SCH (20:21)
[2022-07-13] MEDS: lisinopriL 10 MG TAB PO SCH (20:21)
[2022-07-13] MEDS: ATORVASTATIN 40 MG TAB PO SCH (20:21)
[2022-07-14] MEDS: MORPHINE SULFATE 4 MG/ML SYRINGE IVP PRN ×3 (03:07→20:23)
[2022-07-14] MEDS: KETOROLAC 15 MG/ML 1 ML VIAL IVP SCH ×4 (05:04→23:06)
[2022-07-14] MEDS: SODIUM CHLORIDE 0.9% 1,000 ML IV SCH (05:05)
[2022-07-14] MEDS: PANTOPRAZOLE 40 MG TABLET PO SCH (06:05)
[2022-07-14 06:07] LABS: Glucose,Whole Blood 139 mg/dL (70-110)
[2022-07-14] MEDS: INSULIN ASPART (NovoLOG) 100 UNIT/ML VIAL SQ SCH ×4 (06:07→20:43)
[2022-07-14 06:56] LABS: Basophils # (A) 0.1 k/uL (0-0.2); Basophils % (A) 1 %; Eosinophils # (A) 0.3 k/uL (0-0.7); Eosinophils % (A) 2 %; HCT 39.5 % (39.0-53.0); HGB 12.8 gm/dL (13.0-17.5); Lymphocytes # (A) 1.3 k/uL (1.0-4.8); Lymphocytes % (A) 11 %; MCH 30.8 pg (25.0-35.0); MCHC 32.4 g/dL (31.0-37.0); MCV 95.1 fL (80.0-100.0); Mean Platelet Volume 7.9; Monocytes # (A) 0.9 k/uL (0-1.0); Monocytes % (A) 8 %; Neutrophils # (A) 8.8 k/uL (1.3-7.7); Neutrophils % (A) 76 %; Platelet Count 217 k/uL (150-450); RBC 4.15 m/uL (4.30-5.90); RDW 13.9 % (11.5-15.5); WBC 11.6 k/uL (3.8-10.6)
[2022-07-14] MEDS: PIOGLITAZONE 30 MG TAB PO SCH (09:00)
[2022-07-14] MEDS: METOPROLOL TARTRATE 12.5 MG TAB PO SCH ×2 (09:00→20:23)
[2022-07-14] MEDS: PARoxetine 10 MG TAB PO SCH (09:00)
[2022-07-14] MEDS: MEMANTINE 10 MG TAB PO SCH ×2 (09:00→20:23)
[2022-07-14] MEDS: LIDOCAINE 5% PATCH TOPICAL SCH (09:01)
[2022-07-14] MEDS: HEPARIN SODIUM,PORCINE/PF 5,000 UNIT/0.5 ML SYRINGE SQ SCH ×3 (09:01→23:10)
--- NOTE | 2022-07-14 11:32 | P.PN ---
Subjective Progress Note Date: 07/14/22 Patient 77-year-old male presents emergency department after fall. Patient was walking down some steps to the garage when he missed step. He fell landing sideways. He landed on his left side. After the fall he complained of right hip pain, left upper back pain, left shoulder pain and left elbow pain. Denies any head injury. No loss of consciousness. Does not take any anticoagulation medications. Denies any abdominal pain. No other the patient has history of frontal lobe CVA and history of dementia and the patient is considered to be at high risk of falls. The patient has had previous falls in the past. No head injury. No altered mentation this point in time. His pain is around 4 out of 10 in severity. The patient has undergone further investigation the patient was found to have no acute abnormalities and the CAT scan of the head and cervical spine. CAT scan of the chest showed acute fractures involving the left anterior lateral ribs 4 through 7 without displacement. There is also mild cardiomegaly and pulmonary vascular congestion. There is also evidence of cholelithiasis. X-ray of the elbow showed no evidence of any acute abnormalities. X-ray of the shoulder showed an acute comminuted fracture involving the proximal humerus. X- ray of the hip showed no acute fractures. The patient had mild to moderate right knee and right hip osteoarthrosis. For now, the left upper extremity is placed in a splint. Orthopedic surgery has been consulted. From the pulmonary standpoint, the patient's currently on room air oxygen. Denies having any significant shortness of breath. The lactic acid level is down to 2.5. Glucose 186. The risk of 15.8 with a hemoglobin of 14.3. Electrodes are all within normal limits. BUN is at 70 with a creatinine of 0.7. LFTs are within normal limits. On today's evaluation of 07/14/2022, the patient is complaining of pain in his left rib cage. He remains on room air oxygen. Hemoglobin is at 12.8, bili was 11.6. Lactic acid level dropped down to 1.8. He will left humerus fracture. No other new complaints otherwise. His pain is about 7 out of 10 in severity. He is using a combination of morphine sulfate and Toradol for pain control. The patient was also seen by orthopedic surgery regarding the left proximal humeral fracture. The recommendation was nonsurgical treatment. No be given a sling Objective - Vital Signs Vital signs: Vital Signs Temp 98.0 F 07/14/22 08:59 Pulse 73 07/14/22 08:59 Resp 18 07/14/22 08:59 BP 136/72 07/14/22 08:59 Pulse Ox 97 07/14/22 08:59 FiO2 Intake & Output 07/13/22 07/14/22 07/14/22 18:59 06:59 18:59 Intake Total 1806 250 Output Total 600 Balance 1806 -600 250 Intake: IV 10 Invasive Line 1 10 Oral 1806 240 Output: Urine 600 Other: Voiding Method Urinal Urinal Urinal Incontinent Incontinent Incontinent # Voids 2 1 - Exam Currently on room air oxygen. No signs of any acute respiratory distress, comfortable and calm, Head exam was generally normal. There was no scleral icterus or corneal arcus. Mucous membranes were moist. Neck was supple and without jugular venous distension, thyromegaly, or carotid bruits. Carotids were easily palpable bilaterally. There was no adenopathy. Lungs sounds are diminished bilaterally. Otherwise clear. Breath sounds equal and symmetrical. No evidence of any flail chest. Cardiac exam revealed the PMI to be normally situated and sized. The rhythm was regular and no extrasystoles were noted during several minutes of auscultation. The first and second heart sounds were normal and physiologic splitting of the second heart sound was noted. There were no murmurs, rubs, clicks, or gallops. Abdominal exam revealed normal bowel sounds. The abdomen was soft, non-tender, and without masses, organomegaly, or appreciable enlargement of the abdominal aorta. Extremities revealed that the patient's left upper external he has been placed in a splint, pulses are equal and symmetrical in all 4 extremities. Examination of the skin revealed no evidence of significant rashes, suspicious appearing nevi or other concerning lesions. Neurologically, the patient is slow in his speech. Occasionally stutters. His memory isn't impaired. No focal neurological deficits. - Labs CBC & Chem 7: 07/14/22 06:29 07/12/22 17:11 Labs: Abnormal Lab Results - Last 24 Hours (Table) 07/13/22 07/13/22 07/13/22 Range/Units 11:31 11:48 14:48 WBC (3.8-10.6) k/uL RBC (4.30-5.90) m/uL Hgb (13.0-17.5) gm/dL Neutrophils # (1.3-7.7) k/uL POC Glucose (mg/dL) 186 H (70-110) mg/dL Hemoglobin A1c (0.0-6.0) % Plasma Lactic Acid Luis 2.5 H* 3.5 H* (0.7-2.0) mmol/L 07/13/22 07/13/22 07/13/22 Range/Units 14:48 16:22 18:01 WBC (3.8-10.6) k/uL RBC (4.30-5.90) m/uL Hgb (13.0-17.5) gm/dL Neutrophils # (1.3-7.7) k/uL POC Glucose (mg/dL) 171 H (70-110) mg/dL Hemoglobin A1c 6.4 H (0.0-6.0) % Plasma Lactic Acid Luis 2.7 H* (0.7-2.0) mmol/L 07/13/22 07/13/22 07/14/22 Range/Units 20:10 20:47 06:06 WBC (3.8-10.6) k/uL RBC (4.30-5.90) m/uL Hgb (13.0-17.5) gm/dL Neutrophils # (1.3-7.7) k/uL POC Glucose (mg/dL) 140 H 139 H (70-110) mg/dL Hemoglobin A1c (0.0-6.0) % Plasma Lactic Acid Luis 2.7 H* (0.7-2.0) mmol/L 07/14/22 Range/Units 06:29 WBC 11.6 H (3.8-10.6) k/uL RBC 4.15 L (4.30-5.90) m/uL Hgb 12.8 L (13.0-17.5) gm/dL Neutrophils # 8.8 H (1.3-7.7) k/uL POC Glucose (mg/dL) (70-110) mg/dL Hemoglobin A1c (0.0-6.0) % Plasma Lactic Acid Luis (0.7-2.0) mmol/L Assessment and Plan Plan: Acute fall Traumatic left-sided rib fractures, nondisplaced, fourth through seventh, still having some skeletal chest wall pain on the left pain is about 7 out of 10 in severity Chest wall pain secondary to above Left humeral fracture History of frontal CVA and dementia. The patient is considered to be at high risk of falls Mild lactic acidosis, improving Diabetes mellitus type 2 History of prostate cancer with previous prostatectomy Hypertension Hyperlipidemia Plan Provide the patient adequate pain control with a combination of Toradol and morphine if needed Provide patient incentive spirometer Oxygenation is stable and the patient is on room air oxygen Orthopedic surgery regarding left humeral fracture, treatment is going to be nonsurgical and the patient is going to wear a sling Resume all medications Heparin subcu portably prophylaxis We'll continue to follow.
[2022-07-14 11:44] LABS: Glucose,Whole Blood 192 mg/dL (70-110)
[2022-07-14] MEDS ORDERED: MAGNESIUM HYDROXIDE 2,400 MG/10 ML CUP PO PRN (13:13)
[2022-07-14] MEDS: LACTULOSE 20 GM/30 ML CUP PO SCH ×2 (13:56→20:23)
[2022-07-14] MEDS: SENNOSIDES 8.6 MG TAB PO SCH ×2 (13:56→20:23)
[2022-07-14] MEDS: ACETAMINOPHEN TAB 500 MG TAB PO SCH ×3 (14:12→23:06)
--- NOTE | 2022-07-14 14:50 | P.PN ---
Subjective Progress Note Date: 07/14/22 CHIEF COMPLAINT:Fall with left rib fractures and left humeral fracture HISTORY OF PRESENT ILLNESS: Patient admitted to the trauma service regarding his fall and trauma with fractures to the left ribs and left humerus. Patient is still requiring the IV pain medication. He has worked with that physical t herapy and they're recommending ECF placement. Apparently patient has chosen an ECF and [place]. Patient evaluated by orthopedic service the recommending no surgical intervention on that left humerus fracture. Patient does have swelling in place. Patient denies shortness of breath. Denies abdominal pain. He denies any nausea or vomiting. Patient has been followed by medicine service, pulmonary service and pain service. Afebrile. WBC is down from 13.8-11.6 hemoglobin 12.8 units to 17 lactic acid is down to 1.8. Patient did receive fluid bolus yesterday. Pain service did add a Lidoderm patch PHYSICAL EXAM: VITAL SIGNS: Reviewed GENERAL: Well-developed in no acute distress. HEENT: No sclera icterus. Extraocular movements grossly intact. Moist buccal mucosa. Head is atraumatic, normocephalic. Hears conversational speech. No nasal drainage. NECK: Supple without lymphadenopathy. CHEST: Non-labored respirations and equal bilateral excursions. CARDIOVASCULAR: Palpable 2+ radial pulses. ABDOMEN: Soft. Nondistended. Nontender. MUSCULOSKELETAL: No clubbing or cyanosis. Left arm in sling NEUROLOGIC: No focal or lateralizing signs. Cranial nerves II through XII gr ossly intact. PSYCH: Appropriate affect. Alert and oriented to person, place and time. SKIN: Well perfused. Good skin turgor. ASSESSMENT: 1. Acute fall with trauma to ribs and left 2. Anterior nondisplaced Left rib fractures 4 through 7 secondary to fall 3. Left humeral fracture secondary to fall 4. History of CVA and dementia 5. Mildly elevated lactic acid 6. History of diabetes mellitus 7. History of hypertension 8. Hyperlipidemia 9. History of prostate cancer with previous prostatectomy 11. Leukocytosis PLAN: -Anticipate ECF placement on Sunday -Continue pain management -Add oral Tylenol scheduled -Continue Toradol and IV morphine -Continue to work with PT OT -Encouraged patient to use incentive spirometer -Continue regular diet -GI prophylaxis Protonix and DVT prophylaxis subcu heparin Physician Examining Chair Assembler note has been reviewed by physician. Signing provider agrees with the documented findings, assessment, and plan of care. Objective - Vital Signs Vital signs: Vital Signs Temp 98.0 F 07/14/22 08:59 Pulse 91 07/14/22 12:21 Resp 16 07/14/22 12:21 BP 171/80 07/14/22 12:21 Pulse Ox 91 L 07/14/22 12:21 FiO2 Intake & Output 07/13/22 07/14/22 07/14/22 18:59 06:59 18:59 Intake Total 1806 250 Output Total 600 200 Balance 1806 -600 50 Intake: IV 10 Invasive Line 1 10 Oral 1806 240 Output: Urine 600 200 Other: Voiding Method Urinal Urinal Urinal Incontinent Incontinent Incontinent # Voids 2 1 1 - Labs CBC & Chem 7: 07/14/22 06:29 07/12/22 17:11 Labs: Abnormal Lab Results - Last 24 Hours (Table) 07/13/22 07/13/22 07/13/22 Range/Units 14:48 14:48 16:22 WBC (3.8-10.6) k/uL RBC (4.30-5.90) m/uL Hgb (13.0-17.5) gm/dL Neutrophils # (1.3-7.7) k/uL POC Glucose (mg/dL) 171 H (70-110) mg/dL Hemoglobin A1c 6.4 H (0.0-6.0) % Plasma Lactic Acid Luis 3.5 H* (0.7-2.0) mmol/L 07/13/22 07/13/22 07/13/22 Range/Units 18:01 20:10 20:47 WBC (3.8-10.6) k/uL RBC (4.30-5.90) m/uL Hgb (13.0-17.5) gm/dL Neutrophils # (1.3-7.7) k/uL POC Glucose (mg/dL) 140 H (70-110) mg/dL Hemoglobin A1c (0.0-6.0) % Plasma Lactic Acid Luis 2.7 H* 2.7 H* (0.7-2.0) mmol/L 07/14/22 07/14/22 07/14/22 Range/Units 06:06 06:29 11:42 WBC 11.6 H (3.8-10.6) k/uL RBC 4.15 L (4.30-5.90) m/uL Hgb 12.8 L (13.0-17.5) gm/dL Neutrophils # 8.8 H (1.3-7.7) k/uL POC Glucose (mg/dL) 139 H 192 H (70-110) mg/dL Hemoglobin A1c (0.0-6.0) % Plasma Lactic Acid Luis (0.7-2.0) mmol/L
[2022-07-14 16:43] LABS: Glucose,Whole Blood 126 mg/dL (70-110)
[2022-07-14 20:01] LABS: Glucose,Whole Blood 148 mg/dL (70-110)
[2022-07-14] MEDS: ATORVASTATIN 40 MG TAB PO SCH (20:23)
[2022-07-14] MEDS: lisinopriL 10 MG TAB PO SCH (20:23)
[2022-07-15] MEDS: ACETAMINOPHEN TAB 500 MG TAB PO SCH ×4 (05:56→23:40)
[2022-07-15] MEDS: KETOROLAC 15 MG/ML 1 ML VIAL IVP SCH ×4 (05:56→23:38)
[2022-07-15 05:57] LABS: Glucose,Whole Blood 135 mg/dL (70-110)
[2022-07-15] MEDS: INSULIN ASPART (NovoLOG) 100 UNIT/ML VIAL SQ SCH ×4 (06:02→21:33)
[2022-07-15] MEDS: PANTOPRAZOLE 40 MG TABLET PO SCH (06:04)
--- NOTE | 2022-07-15 06:13 | P.PN ---
Subjective Progress Note Date: 07/14/22 - Reason for Consult Consult date: 07/13/22 Medical management trauma admission secondary to fall - History of Present Illness This is a 77-year-old male who presented to the emergency department after falling mechanically in the garage after missing a step and his left leg giving out on him causing him to fall and landed directly onto his arm, left side, and left leg. Patient was admitted under trauma services for a fall and was noted to have multiple left-sided rib fractures on chest CT anteriorly of the lateral ribs 4 through 7 without any displacement. Patient also had multiple other imagings done including a shoulder x-ray which shows an acute comminuted proximal humerus fracture in which orthopedics has been consulted and pending. Patient continues with an Patrick wrap and sling at this time. Patient knee and other x-rays were negative. Patient reports he sees Dr. Layton in the outpatient setting with a past medical history of CVA, dementia, frequent falls, diabetes mellitus, hyperlipidemia, hypertension, frontal lobe strokes 3, prostate cancer. Patient reports he was a former smoker and denies any other illicit drug use or alcohol use. Labs reviewed on admission showed a WBC of 10.1, hemoglobin 14.8, platelets 255, sodium 137, potassium 4.0, creatinine 0.76, blood sugars mildly elevated, lipase was negative at 31. Patient did have a lactic acid this morning of 3.7 and repeat is 2.5. Patient is requiring oxygen at 4 L and does not normally wear oxygen in the outpatient setting. Patient is reporting immense pain on his left side including his left shoulder. PT/OT to evaluate the patient. Patient also had chest CT that was done which showed acute left anterior lateral ribs 4 through 7 fractures without displacement, mild cardiomegaly with pulmonary vascular congestion to correlate with a serum BNP cholelithiasis, and initially with concerns of a pulmonary contusion and pulmonary was consulted for this reason. Will obtain a BNP and hold off on excessive fluids at this time. Would recommend follow-up labs and will await BNP. 07/14/2022 Patient is seen and evaluated in follow-up today currently sitting up in the chair and per nursing staff was almost maximum assist getting him up. Patient continues to report shortness of breath and pain with inspiration and was encouraged to continue using incentive spirometer at least 10 times every hour along with coughing and deep breathing and patient is refusing. Nursing staff reports he has been refusing incentive spirometer as well. Patient reports he will not be doing that as it hurts too much. Discussed with the patient at length about being high risk for developing pneumonia. Discussed with him about pain management and better control and will need to increase activity as tolerated. Patient is medically stable and planning for ECF. Patient does have upper left humeral fracture and evaluated by orthopedics recommending conservative management at this time and will continue sling and pain management. Patient is currently afebrile with no reports of chest pain or palpitations. Patient denies nausea or vomiting and tolerating diet. Would recommend PT/OT therapy daily. Review of systems: Constitutional: No reports of fatigue, fever, or chills Cardiovascular: No reports of chest pain or palpitations Respiratory: No reports of shortness of breath or cough GI: No reports of nausea, vomiting, or diarrhea : No reports of dysuria or retention Neurovascular: No reports of weakness or numbness All medications have been reviewed PHYSICAL EXAMINATION: GENERAL: The patient is alert and oriented x3, Well developed, well nourished. Obese HEENT: Pupils are round and equally reacting to light. EOMI. no scleral icterus. No conjunctival pallor. Normocephalic, atraumatic. No pharyngeal erythema. No thyromegaly. CARDIOVASCULAR: S1 and S2 muffled PULMONARY: diminished breath sounds bilaterally with no wheezing or rhonchi noted. ABDOMEN: soft. Nontender on exam. obese. non-distended, normoactive bowel sounds. No palpable organomegaly. MUSCULOSKELETAL: No joint swelling or deformity. Left upper arm in sling and Patrick wrapped currently EXTREMITIES: No cyanosis, clubbing, or pedal edema. NEUROLOGICAL: Gross neurological examination did not reveal any focal deficits. Diffuse weakness SKIN: No rashes. Assessment: Mechanical fall after missing some steps with no loss of consciousness Left anterior lateral rib fractures from 4 through 7 without displacement secondary to fall Left acute comminuted proximal humerus fracture secondary to fall Mild lactic acidosis, most likely reactive secondary to fall Diabetes mellitus, type II History of multiple CVAs of the frontal lobe Dementia history Hypertension history Hyperlipidemia GI prophylaxis DVT prophylaxis Full code Plan: Recommend to continue with current medications and management per general surgery services. Patient was admitted as a trauma secondary to mechanical fall with multiple fractures on the left as well as a left humerus fracture Orthopedics consulted and recommending conservative management with no plans for surgical intervention of the left humerus fracture and will continue sling Patient with incentive spirometer at the bedside encouraged keeping close by and using at least 10 times every hour while awake. Patient is refusing to use this as the pain is too intense. Discussed with the patient about high risk for pneumonia development and continued pain if not at least coughing and deep breathing multiple times throughout the day. Patient did have mildly elevated lactic acidosis, most likely reactive secondary to trauma and will monitor closely. Patient also noted to have some possible pleural effusions as noted on chest CT and BNP was 400. Did give small boluses of normal saline and hydration overnight and lactic acid is improved. Discontinued IV fluids Would strongly recommend physical therapy daily and planning for ECF as patient is high risk for falls and has been falling more frequently. ECF is unavailable until Sunday Recommend Accu-Cheks before meals and at bedtime and using sliding scale Home medications will be reviewed and resumed as appropriate Thank you kindly for this consultation. We will continue to follow during hospitalization. The impression and plan of care has been dictated by Kathleen Coombs, nurse practitioner as directed. Dr. Shelley MD I have performed a history and examination and MDM of this patient, discussed the same with the dictator, and agree with the dictator's assessment and plan as written ,documented as a scribe. Based on total visit time, I have performed more than 50% of the visit. Any additional findings or plans will be noted. Objective - Vital Signs Vital signs: Vital Signs Temp 98.0 F 07/14/22 08:59 Pulse 73 07/14/22 08:59 Resp 18 07/14/22 08:59 BP 136/72 07/14/22 08:59 Pulse Ox 97 07/14/22 08:59 FiO2 Intake & Output 07/13/22 07/14/22 07/14/22 18:59 06:59 18:59 Intake Total 1806 250 Output Total 600 Balance 1806 -600 250 Intake: IV 10 Invasive Line 1 10 Oral 1806 240 Output: Urine 600 Other: Voiding Method Urinal Urinal Urinal Incontinent Incontinent Incontinent # Voids 2 1 - Labs CBC & Chem 7: 07/14/22 06:29 07/12/22 17:11 Labs: Abnormal Lab Results - Last 24 Hours (Table) 07/13/22 07/13/2223 Range/Units 11:31 11:48 14:48 WBC (3.8-10.6) k/uL RBC (4.30-5.90) m/uL Hgb (13.0-17.5) gm/dL Neutrophils # (1.3-7.7) k/uL POC Glucose (mg/dL) 186 H (70-110) mg/dL Hemoglobin A1c (0.0-6.0) % Plasma Lactic Acid Luis 2.5 H* 3.5 H* (0.7-2.0) mmol/L 07/13/22 07/13/22 07/13/22 Range/Units 14:48 16:22 18:01 WBC (3.8-10.6) k/uL RBC (4.30-5.90) m/uL Hgb (13.0-17.5) gm/dL Neutrophils # (1.3-7.7) k/uL POC Glucose (mg/dL) 171 H (70-110) mg/dL Hemoglobin A1c 6.4 H (0.0-6.0) % Plasma Lactic Acid Luis 2.7 H* (0.7-2.0) mmol/L 07/13/22 07/13/22 07/14/22 Range/Units 20:10 20:47 06:06 WBC (3.8-10.6) k/uL RBC (4.30-5.90) m/uL Hgb (13.0-17.5) gm/dL Neutrophils # (1.3-7.7) k/uL POC Glucose (mg/dL) 140 H 139 H (70-110) mg/dL Hemoglobin A1c (0.0-6.0) % Plasma Lactic Acid Luis 2.7 H* (0.7-2.0) mmol/L 07/14/22 Range/Units 06:29 WBC 11.6 H (3.8-10.6) k/uL RBC 4.15 L (4.30-5.90) m/uL Hgb 12.8 L (13.0-17.5) gm/dL Neutrophils # 8.8 H (1.3-7.7) k/uL POC Glucose (mg/dL) (70-110) mg/dL Hemoglobin A1c (0.0-6.0) % Plasma Lactic Acid Luis (0.7-2.0) mmol/L
[2022-07-15 07:50] LABS: Basophils # (A) 0.1 k/uL (0-0.2); Basophils % (A) 1 %; Eosinophils # (A) 0.3 k/uL (0-0.7); Eosinophils % (A) 4 %; HCT 37.3 % (39.0-53.0); HGB 12.2 gm/dL (13.0-17.5); Lymphocytes # (A) 1.4 k/uL (1.0-4.8); Lymphocytes % (A) 16 %; MCH 31.9 pg (25.0-35.0); MCHC 32.8 g/dL (31.0-37.0); MCV 97.1 fL (80.0-100.0); Mean Platelet Volume 7.8; Monocytes # (A) 0.5 k/uL (0-1.0); Monocytes % (A) 6 %; Neutrophils % (A) 69 %; Platelet Count 195 k/uL (150-450); RBC 3.84 m/uL (4.30-5.90); RDW 13.8 % (11.5-15.5); WBC 8.7 k/uL (3.8-10.6)
[2022-07-15 08:06] LABS: Potassium 3.7 mmol/L (3.5-5.1)
[2022-07-15 08:07] LABS: African American GFR (CKD) >90 (>60 ml/min/1.73 sqM); Anion Gap 10 mmol/L; Blood Urea Nitrogen 21 mg/dL (9-20); Calcium 8.4 mg/dL (8.4-10.2); Carbon Dioxide 25 mmol/L (22-30); Chloride 98 mmol/L (98-107); Glucose 151 mg/dL (74-99); Non-African American GFR(CKD) 86 (>60 ml/min/1.73 sqM); Sodium 133 mmol/L (137-145)
[2022-07-15] MEDS: PIOGLITAZONE 30 MG TAB PO SCH (09:00)
[2022-07-15] MEDS: MEMANTINE 10 MG TAB PO SCH ×2 (09:00→21:33)
[2022-07-15] MEDS: LACTULOSE 20 GM/30 ML CUP PO SCH ×3 (09:00→21:01)
[2022-07-15] MEDS: LIDOCAINE 5% PATCH TOPICAL SCH (09:01)
[2022-07-15] MEDS: FUROSEMIDE 40 MG TAB PO SCH (09:01)
[2022-07-15] MEDS: PARoxetine 10 MG TAB PO SCH (09:01)
[2022-07-15] MEDS: SENNOSIDES 8.6 MG TAB PO SCH ×2 (09:01→21:33)
[2022-07-15] MEDS: METOPROLOL TARTRATE 12.5 MG TAB PO SCH ×2 (09:01→21:33)
[2022-07-15] MEDS: HEPARIN SODIUM,PORCINE/PF 5,000 UNIT/0.5 ML SYRINGE SQ SCH ×3 (09:03→23:41)
--- NOTE | 2022-07-15 09:47 | P.PN ---
Subjective Progress Note Date: 07/15/22 Patient 77-year-old male presents emergency department after fall. Patient was walking down some steps to the garage when he missed step. He fell landing sideways. He landed on his left side. After the fall he complained of right hip pain, left upper back pain, left shoulder pain and left elbow pain. Denies any head injury. No loss of consciousness. Does not take any anticoagulation medications. Denies any abdominal pain. No other the patient has history of frontal lobe CVA and history of dementia and the patient is considered to be at high risk of falls. The patient has had previous falls in the past. No head injury. No altered mentation this point in time. His pain is around 4 out of 10 in severity. The patient has undergone further investigation the patient was found to have no acute abnormalities and the CAT scan of the head and cervical spine. CAT scan of the chest showed acute fractures involving the left anterior lateral ribs 4 through 7 without displacement. There is also mild cardiomegaly and pulmonary vascular congestion. There is also evidence of cholelithiasis. X-ray of the elbow showed no evidence of any acute abnormalities. X-ray of the shoulder showed an acute comminuted fracture involving the proximal humerus. X- ray of the hip showed no acute fractures. The patient had mild to moderate right knee and right hip osteoarthrosis. For now, the left upper extremity is placed in a splint. Orthopedic surgery has been consulted. From the pulmonary standpoint, the patient's currently on room air oxygen. Denies having any significant shortness of breath. The lactic acid level is down to 2.5. Glucose 186. The risk of 15.8 with a hemoglobin of 14.3. Electrodes are all within normal limits. BUN is at 70 with a creatinine of 0.7. LFTs are within normal limits. On today's evaluation of 07/14/2022, the patient is complaining of pain in his left rib cage. He remains on room air oxygen. Hemoglobin is at 12.8, bili was 11.6. Lactic acid level dropped down to 1.8. He will left humerus fracture. No other new complaints otherwise. His pain is about 7 out of 10 in severity. He is using a combination of morphine sulfate and Toradol for pain control. The patient was also seen by orthopedic surgery regarding the left proximal humeral fracture. The recommendation was nonsurgical treatment. No be given a sling Is evaluation of the 2022, the patient is being seen for a follow-up. The patient is still having some left-sided chest pain following his trauma and traumatic left-sided rib fractures. Blood work from today shows a hemoglobin of 12.2, there is +0.7, platelet count is at 195. BUN of 21 and a creatinine of 0.8. The patient will not need surgical intervention regarding his left humeral fracture. He is currently on 2 L of oxygen by nasal cannula. He reports that his pain. Is 6 out of 10. His receiving Toradol, IV morphine for pain control. He also has Tylenol as needed. He is using the INCENTIVE spirometer. Objective - Vital Signs Vital signs: Vital Signs Temp 97.9 F 07/15/22 08:57 Pulse 75 07/15/22 08:57 Resp 18 07/15/22 08:57 BP 124/68 07/15/22 08:57 Pulse Ox 96 07/15/22 08:57 FiO2 Intake & Output 07/14/22 07/15/22 07/15/22 18:59 06:59 18:59 Intake Total 360 10 Output Total 200 300 Balance 160 -300 10 Intake: IV 20 10 Invasive Line 1 20 10 Oral 340 Output: Urine 200 300 Other: Voiding Method Urinal Urinal Urinal Incontinent # Voids 1 1 - Exam Currently on room air oxygen. No signs of any acute respiratory distress, comfortable and calm, Head exam was generally normal. There was no scleral icterus or corneal arcus. Mucous membranes were moist. Neck was supple and without jugular venous distension, thyromegaly, or carotid bruits. Carotids were easily palpable bilaterally. There was no adenopathy. Lungs sounds are diminished bilaterally. Otherwise clear. Breath sounds equal and symmetrical. No evidence of any flail chest. Cardiac exam revealed the PMI to be normally situated and sized. The rhythm was regular and no extrasystoles were noted during several minutes of auscultation. The first and second heart sounds were normal and physiologic splitting of the second heart sound was noted. There were no murmurs, rubs, clicks, or gallops. Abdominal exam revealed normal bowel sounds. The abdomen was soft, non-tender, and without masses, organomegaly, or appreciable enlargement of the abdominal aorta. Extremities revealed that the patient's left upper external he has been placed in a splint, pulses are equal and symmetrical in all 4 extremities. Examination of the skin revealed no evidence of significant rashes, suspicious appearing nevi or other concerning lesions. Neurologically, the patient is slow in his speech. Occasionally stutters. His memory isn't impaired. No focal neurological deficits. - Labs CBC & Chem 7: 07/15/22 07:27 07/15/22 07:32 Labs: Abnormal Lab Results - Last 24 Hours (Table) 07/14/22 07/14/22 07/14/22 Range/Units 11:42 16:37 19:59 RBC (4.30-5.90) m/uL Hgb (13.0-17.5) gm/dL Hct (39.0-53.0) % Sodium (137-145) mmol/L BUN (9-20) mg/dL Glucose (74-99) mg/dL POC Glucose (mg/dL) 192 H 126 H 148 H (70-110) mg/dL 07/15/22 07/15/22 07/15/22 Range/Units 05:55 07:27 07:32 RBC 3.84 L (4.30-5.90) m/uL Hgb 12.2 L (13.0-17.5) gm/dL Hct 37.3 L (39.0-53.0) % Sodium 133 L (137-145) mmol/L BUN 21 H (9-20) mg/dL Glucose 151 H (74-99) mg/dL POC Glucose (mg/dL) 135 H (70-110) mg/dL Assessment and Plan Plan: Acute fall Traumatic left-sided rib fractures, nondisplaced, fourth through seventh, still having some skeletal chest wall pain on the left pain is about 6 out of 10 in severity. Using incentive spirometer. Pulling approximately 2000. Chest wall pain secondary to above Left humeral fracture History of frontal CVA and dementia. The patient is considered to be at high risk of falls Mild lactic acidosis, improving Diabetes mellitus type 2 History of prostate cancer with previous prostatectomy Hypertension Hyperlipidemia Plan Provide the patient adequate pain control with a combination of Toradol and morphine if needed Provide patient incentive spirometer Provide laxative Oxygenation is stable and the patient is on 2 L O2 nasal cannula Orthopedic surgery regarding left humeral fracture, treatment is going to be nonsurgical and the patient is going to wear a sling Resume all medications Heparin subcu portably prophylaxis We'll continue to follow.
[2022-07-15 12:16] LABS: Glucose,Whole Blood 204 mg/dL (70-110)
[2022-07-15 16:53] LABS: Glucose,Whole Blood 111 mg/dL (70-110)
--- NOTE | 2022-07-15 20:38 | P.PN ---
Subjective Progress Note Date: 07/15/22 CHIEF COMPLAINT: Status post fall HISTORY OF PRESENT ILLNESS: The patient is a 77-year-old male status post fall with right humeral fracture, multiple rib fractures. He complains of right hip pain and leg pain. He is using LOCOMOTIVE OPERATOR HELPER for pain management. He reports poor taste due to previous rhinovirus infection. ROS: No reports of nausea and vomiting. No fevers or chills. No new chest pain. No productive sputum PHYSICAL EXAM: VITAL SIGNS: Reviewed CONSTITUTIONAL: Well developed and in no acute distress. EYES: Conjuctivae without sclera icterus. Extraocular movements grossly intact. HEAD, EARS, NOSE, THROAT: Moist buccal mucosa. Head is atraumatic, normocephalic. Hears conversational speech. No nasal drainage. RESPIRATORY: Non-labored respirations and equal bilateral excursions. CARDIOVASCULAR: Palpable 2+ radial pulses. ABDOMEN: Protuberant MUSCULOSKELETAL: Has left arm sling. SKIN: Good skin turgor. Well perfused. NEUROLOGIC: Cranial nerves II through XII grossly intact. No focal or lateralizing signs. PSYCH: Appropriate affect. Alert and oriented to person, place and time. CLINICAL LABS: Reviewed. ASSESSMENT: 1. Status post fall 2. Left humerus fracture 3. Multiple rib fractures 4. Right hip pain, right greater than left PLAN: 1. May need additional imaging of right hip, knee 2. May need reconsult orthopedics due to hip 3. Pending transfer to rehab once medically stable Objective - Vital Signs Vital signs: Vital Signs Temp 98.0 F 07/15/22 19:50 Pulse 95 07/15/22 19:50 Resp 18 07/15/22 19:50 BP 143/69 07/15/22 19:50 Pulse Ox 92 L 07/15/22 19:50 FiO2 Intake & Output 07/15/22 07/15/22 07/16/22 06:59 18:59 07:59 Intake Total 128 Output Total 300 200 Balance -300 -72 Intake: IV 10 Invasive Line 1 10 Oral 118 Output: Urine 300 200 Other: Voiding Method Urinal Urinal # Voids 1 3 # Bowel Movements 3 - Labs CBC & Chem 7: 07/15/22 07:27 07/15/22 07:32 Labs: Abnormal Lab Results - Last 24 Hours (Table) 07/15/22 07/15/22 07/15/22 Range/Units 05:55 07:27 07:32 RBC 3.84 L (4.30-5.90) m/uL Hgb 12.2 L (13.0-17.5) gm/dL Hct 37.3 L (39.0-53.0) % Sodium 133 L (137-145) mmol/L BUN 21 H (9-20) mg/dL Glucose 151 H (74-99) mg/dL POC Glucose (mg/dL) 135 H (70-110) mg/dL 07/15/22 07/15/22 Range/Units 12:02 16:52 RBC (4.30-5.90) m/uL Hgb (13.0-17.5) gm/dL Hct (39.0-53.0) % Sodium (137-145) mmol/L BUN (9-20) mg/dL Glucose (74-99) mg/dL POC Glucose (mg/dL) 204 H 111 H (70-110) mg/dL
[2022-07-15 20:50] LABS: Glucose,Whole Blood 174 mg/dL (70-110)
[2022-07-15] MEDS: ATORVASTATIN 40 MG TAB PO SCH (21:33)
[2022-07-15] MEDS: lisinopriL 10 MG TAB PO SCH (21:33)
[2022-07-16] MEDS: KETOROLAC 15 MG/ML 1 ML VIAL IVP SCH (05:53)
[2022-07-16] MEDS: ACETAMINOPHEN TAB 500 MG TAB PO SCH ×4 (05:53→23:39)
--- NOTE | 2022-07-16 07:42 | XR ---
EXAMINATION TYPE: XR Hip Bilateral Complete DATE OF EXAM: 07/16/2022 1:20 AM INDICATION: Patient age:Male; 77 years old; Reason for study: s/p fall, bilateral hip pain, R>L; . COMPARISON: None. TECHNIQUE: The bilateral hips were examined in the frontal and lateral projections and a AP pelvis. FINDINGS: No evidence for acute process, joint dislocation or significant soft tissue swelling. Mild osteophyte formation acetabulum bilaterally. IMPRESSION: 1. No acute process. 2. Mild bilateral hip osteoarthrosis.
--- NOTE | 2022-07-16 07:47 | XR ---
EXAMINATION TYPE: XR knee complete bilateral DATE OF EXAM: 07/16/2022 1:20 AM INDICATION: Patient age:Male; 77 years old; Reason for study: s/p fall, bilateral knee pain, R>L; COMPARISON: None. TECHNIQUE: The Bilateral knee(s) was examined in Frontal, lateral and oblique projections. FINDINGS: No evidence of any acute osseous pathology, soft tissue swelling, or joint effusion is no pedro. Tricompartmental osteophyte formation involving the femoral condyles, tibial plateau and patella. Mi ld joint space narrowing. IMPRESSION: 1. No acute osseous pathology. 2. Mild tricompartmental osteoarthritic changes bilaterally.
[2022-07-16 07:49] LABS: Glucose,Whole Blood 122 mg/dL (70-110)
[2022-07-16] MEDS: INSULIN ASPART (NovoLOG) 100 UNIT/ML VIAL SQ SCH ×4 (07:55→21:21)
[2022-07-16] MEDS: SENNOSIDES 8.6 MG TAB PO SCH ×2 (09:18→21:21)
[2022-07-16] MEDS: LACTULOSE 20 GM/30 ML CUP PO SCH ×3 (09:18→20:39)
[2022-07-16] MEDS: METOPROLOL TARTRATE 12.5 MG TAB PO SCH ×2 (09:23→21:21)
[2022-07-16] MEDS: HEPARIN SODIUM,PORCINE/PF 5,000 UNIT/0.5 ML SYRINGE SQ SCH ×3 (09:23→23:59)
[2022-07-16] MEDS: PANTOPRAZOLE 40 MG TABLET PO SCH (09:23)
[2022-07-16] MEDS: PIOGLITAZONE 30 MG TAB PO SCH (09:24)
[2022-07-16] MEDS: LIDOCAINE 5% PATCH TOPICAL SCH (09:24)
[2022-07-16] MEDS: PARoxetine 10 MG TAB PO SCH (09:24)
[2022-07-16] MEDS: MEMANTINE 10 MG TAB PO SCH ×2 (09:24→21:21)
[2022-07-16 12:32] LABS: Glucose,Whole Blood 147 mg/dL (70-110)
--- NOTE | 2022-07-16 13:30 | P.PN ---
Subjective Progress Note Date: 07/16/22 Orthopedics was re-consulted that the patient had developed right hip and bilateral leg pain since he was last seen past . The patient is well- known to our service as he had previously seen him. The patient states that while he wasn't having hip and knee pain when he was [facility] he does have a chronic history of low back and right hip pain for which she sees an orthopedist closer to [facility]. The patient states that when he gets up and pivots on the left leg he gets right sided hip and groin pain. He states would be difficult for him to walk. Objective - Vital Signs Vital signs: Vital Signs Temp 97.7 F 07/16/22 07:41 Pulse 82 07/16/22 07:41 Resp 16 07/16/22 07:41 BP 147/75 07/16/22 07:41 Pulse Ox 98 07/16/22 07:52 FiO2 Intake & Output 07/15/22 07/16/22 07/16/22 17:59 06:59 18:59 Intake Total Output Total Balance Intake: IV Invasive Line 1 Oral Output: Urine Other: Voiding Method Urinal Diaper # Voids 2 # Bowel Movements 1 - Exam The patient is sitting comfortably at bedside. He is eating his lunch. There is no pain with passive range of motion of the left hip. He is able to perform a left straight leg raise without pain. There is mild discomfort with passive range of motion of the right hip. He is able to perform a straight leg raise although it is mildly painful for him. On inspection of both of his knees there is no overlying swelling, erythema, ecchymosis, or discoloration of the skin. There are no effusions on either knee. He has minimal pain with passive range of motion of both knees. - Labs CBC & Chem 7: 07/15/22 07:27 07/15/22 07:32 Labs: Abnormal Lab Results - Last 24 Hours (Table) 07/15/22 07/15/22 07/16/22 Range/Units 16:52 20:47 07:47 POC Glucose (mg/dL) 111 H 174 H 122 H (70-110) mg/dL 07/16/22 Range/Units 12:31 POC Glucose (mg/dL) 147 H (70-110) mg/dL Assessment and Plan Assessment: Left proximal humerus fracture Acute on chronic right hip pain, no obvious fractures on x-ray Chronic low back pain Plan: The patient is a somewhat poor historian and is very tangential in relating his history. He states that while he wasn't having hip or knee pain this past when he was previously seen, he does have a history of chronic problems with his back and right hip. He says that he has an orthopedic surgeon that he sees for these issues closer to home in [place]. His recent x-rays don't show any acute fractures. My suspicion is that this is likely an exacerbation of pre-existing arthritis and his issues in the low back, but since he won't walk and had a fall we will obtain an MRI of the right hip to rule out a fracture. If he continues to have issues and his MRI is normal we will consult the spine service as I don't manage spine issues. The patient should remain toe-touch weightbearing until the MRI of his right hip is obtained. Again I have a low suspicion for fracture but given his fall and refusal to bear weight we will obtain an MRI to rule out a fracture. Time with Patient: Greater than 30
--- NOTE | 2022-07-16 13:33 | P.PN ---
Subjective Progress Note Date: 07/16/22 Patient 77-year-old male presents emergency department after fall. Patient was walking down some steps to the garage when he missed step. He fell landing sideways. He landed on his left side. After the fall he complained of right hip pain, left upper back pain, left shoulder pain and left elbow pain. Denies any head injury. No loss of consciousness. Does not take any anticoagulation medications. Denies any abdominal pain. No other the patient has history of frontal lobe CVA and history of dementia and the patient is considered to be at high risk of falls. The patient has had previous falls in the past. No head injury. No altered mentation this point in time. His pain is around 4 out of 10 in severity. The patient has undergone further investigation the patient was found to have no acute abnormalities and the CAT scan of the head and cervical spine. CAT scan of the chest showed acute fractures involving the left anterior lateral ribs 4 through 7 without displacement. There is also mild cardiomegaly and pulmonary vascular congestion. There is also evidence of cholelithiasis. X-ray of the elbow showed no evidence of any acute abnormalities. X-ray of the shoulder showed an acute comminuted fracture involving the proximal humerus. X- ray of the hip showed no acute fractures. The patient had mild to moderate right knee and right hip osteoarthrosis. For now, the left upper extremity is placed in a splint. Orthopedic surgery has been consulted. From the pulmonary standpoint, the patient's currently on room air oxygen. Denies having any significant shortness of breath. The lactic acid level is down to 2.5. Glucose 186. The risk of 15.8 with a hemoglobin of 14.3. Electrodes are all within normal limits. BUN is at 70 with a creatinine of 0.7. LFTs are within normal limits. On today's evaluation of 07/14/2022, the patient is complaining of pain in his left rib cage. He remains on room air oxygen. Hemoglobin is at 12.8, bili was 11.6. Lactic acid level dropped down to 1.8. He will left humerus fracture. No other new complaints otherwise. His pain is about 7 out of 10 in severity. He is using a combination of morphine sulfate and Toradol for pain control. The patient was also seen by orthopedic surgery regarding the left proximal humeral fracture. The recommendation was nonsurgical treatment. No be given a sling Is evaluation of the 2022, the patient is being seen for a follow-up. The patient is still having some left-sided chest pain following his trauma and traumatic left-sided rib fractures. Blood work from today shows a hemoglobin of 12.2, there is +0.7, platelet count is at 195. BUN of 21 and a creatinine of 0.8. The patient will not need surgical intervention regarding his left humeral fracture. He is currently on 2 L of oxygen by nasal cannula. He reports that his pain. Is 6 out of 10. His receiving Toradol, IV morphine for pain control. He also has Tylenol as needed. He is using the INCENTIVE spirometer. 07/16/2022, the patient is stable, still complaining of pain in his left chest/rib cage and patient is currently on tramadol. He has relatively adequate pain control. X-ray of the hip and the knee came back negative and the patient has a humeral fracture. Using incentive spirometer and he remains on 2 L of oxygen by nasal cannula. Passing bowel movements. Objective - Vital Signs Vital signs: Vital Signs Temp 97.7 F 07/16/22 07:41 Pulse 82 07/16/22 07:41 Resp 16 07/16/22 07:41 BP 147/75 07/16/22 07:41 Pulse Ox 98 07/16/22 07:52 FiO2 Intake & Output 07/15/22 07/16/22 07/16/22 17:59 06:59 18:59 Intake Total Output Total Balance Intake: IV Invasive Line 1 Oral Output: Urine Other: Voiding Method Urinal Diaper # Voids 2 # Bowel Movements 1 - Exam Currently on room air oxygen. No signs of any acute respiratory distress, comfortable and calm, Head exam was generally normal. There was no scleral icterus or corneal arcus. Mucous membranes were moist. Neck was supple and without jugular venous distension, thyromegaly, or carotid bruits. Carotids were easily palpable bilaterally. There was no adenopathy. Lungs sounds are diminished bilaterally. Otherwise clear. Breath sounds equal and symmetrical. No evidence of any flail chest. Cardiac exam revealed the PMI to be normally situated and sized. The rhythm was regular and no extrasystoles were noted during several minutes of auscultation. The first and second heart sounds were normal and physiologic splitting of the second heart sound was noted. There were no murmurs, rubs, clicks, or gallops. Abdominal exam revealed normal bowel sounds. The abdomen was soft, non-tender, and without masses, organomegaly, or appreciable enlargement of the abdominal aorta. Extremities revealed that the patient's left upper external he has been placed in a splint, pulses are equal and symmetrical in all 4 extremities. Examination of the skin revealed no evidence of significant rashes, suspicious appearing nevi or other concerning lesions. Neurologically, the patient is slow in his speech. Occasionally stutters. His memory isn't impaired. No focal neurological deficits. - Labs CBC & Chem 7: 07/15/22 07:27 07/15/22 07:32 Labs: Abnormal Lab Results - Last 24 Hours (Table) 07/15/22 07/15/22 07/16/22 Range/Units 16:52 20:47 07:47 POC Glucose (mg/dL) 111 H 174 H 122 H (70-110) mg/dL 07/16/22 Range/Units 12:31 POC Glucose (mg/dL) 147 H (70-110) mg/dL Assessment and Plan Plan: Acute fall Traumatic left-sided rib fractures, nondisplaced, fourth through seventh, still having some skeletal chest wall pain on the left pain is about 6 out of 10 in severity. Using incentive spirometer. Pulling approximately 2000. Chest wall pain secondary to above Left humeral fracture History of frontal CVA and dementia. The patient is considered to be at high [place] of falls Mild lactic acidosis, improving Diabetes mellitus type 2 History of prostate cancer with previous prostatectomy Hypertension Hyperlipidemia Plan Provide the patient adequate pain control with tramadol Wean down FiO2 as tolerated currently on 2 L May benefit from a bear hugger to support his chest Provide patient incentive spirometer Provide laxative Oxygenation is stable and the patient is on 2 L O2 nasal cannula Orthopedic surgery regarding left humeral fracture, treatment is going to be nonsurgical and the patient is going to wear a sling Resume all medications Heparin subcu portably prophylaxis We'll continue to follow.
[2022-07-16] MEDS: traMADol 50 MG TAB PO PRN ×2 (13:44→23:59)
--- NOTE | 2022-07-16 15:10 | P.PN ---
Subjective Progress Note Date: 07/15/22 This is a 77-year-old male who presented to the emergency department after falling mechanically in the garage after missing a step and his left leg giving out on him causing him to fall and landed directly onto his arm, left side, and left leg. Patient was admitted under trauma services for a fall and was noted to have multiple left-sided rib fractures on chest CT anteriorly of the lateral ribs 4 through 7 without any displacement. Patient also had multiple other imagings done including a shoulder x-ray which shows an acute comminuted proximal humerus fracture in which orthopedics has been consulted and pending. Patient continues with an Patrick wrap and sling at this time. Patient knee and other x-rays were negative. Patient reports he sees Dr. Layton in the outpatient setting with a past medical history of CVA, dementia, frequent falls, diabetes mellitus, hyperlipidemia, hypertension, frontal lobe strokes 3, prostate cancer. Patient reports he was a former smoker and denies any other illicit drug use or alcohol use. Labs reviewed on admission showed a WBC of 10.1, hemoglobin 14.8, platelets 255, sodium 137, potassium 4.0, creatinine 0.76, blood sugars mildly elevated, lipase was negative at 31. Patient did have a lactic acid this morning of 3.7 and repeat is 2.5. Patient is requiring oxygen at 4 L and does not normally wear oxygen in the outpatient setting. Patient is reporting immense pain on his left side including his left shoulder. PT/OT to evaluate the patient. Patient also had chest CT that was done which showed acute left anterior lateral ribs 4 through 7 fractures without displacement, mild cardiomegaly with pulmonary vascular congestion to correlate with a serum BNP cholelithiasis, and initially with concerns of a pulmonary contusion and pulmonary was consulted for this reason. Will obtain a BNP and hold off on excessive fluids at this time. Would recommend follow-up labs and will await BNP. 07/14/2022 Patient is seen and evaluated in follow-up today currently sitting up in the chair and per nursing staff was almost maximum assist getting him up. Patient continues to report shortness of breath and pain with inspiration and was encouraged to continue using incentive spirometer at least 10 times every hour along with coughing and deep breathing and patient is refusing. Nursing staff reports he has been refusing incentive spirometer as well. Patient reports he will not be doing that as it hurts too much. Discussed with the patient at [facility] about being high risk for developing pneumonia. Discussed with him about pain management and better control and will need to increase activity as tolerated. Patient is medically stable and planning for ECF. Patient does have upper left humeral fracture and evaluated by orthopedics recommending conservative management at this time and will continue sling and pain management. Patient is currently afebrile with no reports of chest pain or palpitations. Patient denies nausea or vomiting and tolerating diet. Would recommend PT/OT therapy daily. 07/15/2022 Patient evaluated on stepdown unit no acute events overnight. Patient reports improved breathing and using incentive spirometer getting to about 750 mls. He reports pain as uncontrolled however does state sitting up in the chair is helping the pain. He continues with immobilizer sling to his left upper extremity. Patient is issues with intermittent urinary retention requiring a bladder scan and monitoring. Plan is for discharge to rehab on Sunday. He remains afebrile, he is on 2 L of nasal cannula as needed. Review of systems: Constitutional: No reports of fatigue, fever, or chills Cardiovascular: No reports of chest pain or palpitations Respiratory: No reports of shortness of breath or cough GI: No reports of nausea, vomiting, or diarrhea : No reports of dysuria or retention Neurovascular: No reports of weakness or numbness All medications have been reviewed PHYSICAL EXAMINATION: GENERAL: The patient is alert and oriented x3, Well developed, well nourished. Obese HEENT: Pupils are round and equally reacting to light. EOMI. no scleral icterus. No conjunctival pallor. Normocephalic, atraumatic. No pharyngeal erythema. No thyromegaly. CARDIOVASCULAR: S1 and S2 muffled PULMONARY: diminished breath sounds bilaterally with no wheezing or rhonchi noted. ABDOMEN: soft. Nontender on exam. obese. non-distended, normoactive bowel sounds. No palpable organomegaly. MUSCULOSKELETAL: No joint swelling or deformity. Left upper arm in sling and Patrick wrapped currently EXTREMITIES: No cyanosis, clubbing, or pedal edema. NEUROLOGICAL: Gross neurological examination did not reveal any focal deficits. Diffuse weakness SKIN: No rashes. Assessment: Mechanical fall after missing some steps with no loss of consciousness Left anterior lateral rib fractures from 4 through 7 without displacement se condary to fall Left acute comminuted proximal humerus fracture secondary to fall Mild lactic acidosis, most likely reactive secondary to fall Diabetes mellitus, type II History of multiple CVAs of the frontal lobe Dementia history Hypertension history Hyperlipidemia GI prophylaxis DVT prophylaxis Full code Plan: Recommend to continue with current medications and management per general surgery services. Patient was admitted as a trauma secondary to mechanical fall with multiple fractures on the left as well as a left humerus fracture Orthopedics consulted and recommending conservative management with no plans for surgical intervention of the left humerus fracture and will continue sling Patient with incentive spirometer at the bedside encouraged keeping close by and using at least 10 times every hour while awake. Patient is refusing to use this as the pain is too intense. Discussed with the patient about high risk for pneumonia development and continued pain if not at least coughing and deep breathing multiple times throughout the day. Patient did have mildly elevated lactic acidosis, most likely reactive secondary to trauma and will monitor closely. Patient also noted to have some possible pleural effusions as noted on chest CT and BNP was 400. Did give small boluses of normal saline and hydration overnight and lactic acid is improved. Discontinued IV fluids Would strongly recommend physical therapy daily and planning for ECF as patient is high risk for falls and has been falling more frequently. ECF is unavailable until Sunday Recommend Accu-Cheks before meals and at bedtime and using sliding scale Home medications will be reviewed and resumed as appropriate Thank you kindly for this consultation. We will continue to follow during hospitalization. The impression and plan of care has been dictated by Mercedez Haines, Nurse Practitioner as directed. Dr. Shelley MD I have performed a history and physical examination and medical decision making of this patient, discussed the same with the dictator, and agree with the dictators assessment and plan as written, documented as a scribe. Based on total visit time, I have performed more than 50% of this visit. Objective - Vital Signs Vital signs: Vital Signs Temp 97.9 F 07/15/22 08:57 Pulse 75 07/15/22 08:57 Resp 18 07/15/22 08:57 BP 124/68 07/15/22 08:57 Pulse Ox 96 07/15/22 08:57 FiO2 Intake & Output 07/14/22 07/15/22 07/15/22 18:59 06:59 18:59 Intake Total 360 Output Total 200 300 Balance 160 -300 Intake: IV 20 Invasive Line 1 20 Oral 340 Output: Urine 200 300 Other: Voiding Method Urinal Urinal Incontinent # Voids 1 1 - Labs CBC & Chem 7: 07/15/22 07:27 07/15/22 07:32 Labs: Abnormal Lab Results - Last 24 Hours (Table) 07/14/22 07/14/22 07/14/22 Range/Units 11:42 16:37 19:59 RBC (4.30-5.90) m/uL Hgb (13.0-17.5) gm/dL Hct (39.0-53.0) % Sodium (137-145) mmol/L BUN (9-20) mg/dL Glucose (74-99) mg/dL POC Glucose (mg/dL) 192 H 126 H 148 H (70-110) mg/dL 07/15/22 07/15/22 07/15/22 Range/Units 05:55 07:27 07:32 RBC 3.84 L (4.30-5.90) m/uL Hgb 12.2 L (13.0-17.5) gm/dL Hct 37.3 L (39.0-53.0) % Sodium 133 L (137-145) mmol/L BUN 21 H (9-20) mg/dL Glucose 151 H (74-99) mg/dL POC Glucose (mg/dL) 135 H (70-110) mg/dL
--- NOTE | 2022-07-16 15:27 | P.PN ---
Subjective Progress Note Date: 07/16/22 This is a 77-year-old male who presented to the emergency department after falling mechanically in the garage after missing a step and his left leg giving out on him causing him to fall and landed directly onto his arm, left side, and left leg. Patient was admitted under trauma services for a fall and was noted to have multiple left-sided rib fractures on chest CT anteriorly of the lateral ribs 4 through 7 without any displacement. Patient also had multiple other imagings done including a shoulder x-ray which shows an acute comminuted proximal humerus fracture in which orthopedics has been consulted and pending. Patient continues with an Patrick wrap and sling at this time. Patient knee and other x-rays were negative. Patient reports he sees Dr. Layton in the outpatient setting with a past medical history of CVA, dementia, frequent falls, diabetes mellitus, hyperlipidemia, hypertension, frontal lobe strokes 3, prostate cancer. Patient reports he was a former smoker and denies any other illicit drug use or alcohol use. Labs reviewed on admission showed a WBC of 10.1, hemoglobin 14.8, platelets 255, sodium 137, potassium 4.0, creatinine 0.76, blood sugars mildly elevated, lipase was negative at 31. Patient did have a lactic acid this morning of 3.7 and repeat is 2.5. Patient is requiring oxygen at 4 L and does not normally wear oxygen in the outpatient setting. Patient is reporting immense pain on his left side including his left shoulder. PT/OT to evaluate the patient. Patient also had chest CT that was done which showed acute left anterior lateral ribs 4 through 7 fractures without displacement, mild cardiomegaly with pulmonary vascular congestion to correlate with a serum BNP cholelithiasis, and initially with concerns of a pulmonary contusion and pulmonary was consulted for this reason. Will obtain a BNP and hold off on excessive fluids at this time. Would recommend follow-up labs and will await BNP. 07/14/2022 Patient is seen and evaluated in follow-up today currently sitting up in the chair and per nursing staff was almost maximum assist getting him up. Patient continues to report shortness of breath and pain with inspiration and was encouraged to continue using incentive spirometer at least 10 times every hour along with coughing and deep breathing and patient is refusing. Nursing staff reports he has been refusing incentive spirometer as well. Patient reports he will not be doing that as it hurts too much. Discussed with the patient at [facility] about being high risk for developing pneumonia. Discussed with him about pain management and better control and will need to increase activity as tolerated. Patient is medically stable and planning for ECF. Patient does have upper left humeral fracture and evaluated by orthopedics recommending conservative management at this time and will continue sling and pain management. Patient is currently afebrile with no reports of chest pain or palpitations. Patient denies nausea or vomiting and tolerating diet. Would recommend PT/OT therapy daily. 07/15/2022 Patient evaluated on stepdown unit no acute events overnight. Patient reports improved breathing and using incentive spirometer getting to about 750 mls. He reports pain as uncontrolled however does state sitting up in the chair is helping the pain. He continues with immobilizer sling to his left upper extremity. Patient is issues with intermittent urinary retention requiring a bladder scan and monitoring. Plan is for discharge to rehab on Sunday. He remains afebrile, he is on 2 L of nasal cannula as needed. 07/16/2022 Patient is evaluated today on the medical floor. He does report an improvement in his pain. He is receiving IV Toradol every 6 hours as well as oral tramadol. He does report pain to right knee and right hip after falling prior to admission. Bilateral hip showing no acute process and mild bilateral hip osteoarthrosis. Bilateral knee xray showing no acute osseous pathology and mild tricompartmental osteoarthritic changes bilaterally. Blood glucose remains stable. Patient is afebrile, heart rate 73, blood pressure 127/73, 94% room air. Review of systems: Constitutional: No reports of fatigue, fever, or chills Cardiovascular: No reports of chest pain or palpitations Respiratory: No reports of shortness of breath or cough GI: No reports of nausea, vomiting, or diarrhea : No reports of dysuria or retention Neurovascular: No reports of weakness or numbness All medications have been reviewed PHYSICAL EXAMINATION: GENERAL: The patient is alert and oriented x3, Well developed, well nourished. Obese HEENT: Pupils are round and equally reacting to light. EOMI. no scleral icterus. No conjunctival pallor. Normocephalic, atraumatic. No pharyngeal erythema. No thyromegaly. CARDIOVASCULAR: S1 and S2 muffled PULMONARY: diminished breath sounds bilaterally with no wheezing or rhonchi noted. ABDOMEN: soft. Nontender on exam. obese. non-distended, normoactive bowel sounds. No palpable organomegaly. MUSCULOSKELETAL: No joint swelling or deformity. Left upper arm in sling and A ce wrapped currently EXTREMITIES: No cyanosis, clubbing, or pedal edema. NEUROLOGICAL: Gross neurological examination did not reveal any focal deficits. Diffuse weakness SKIN: No rashes. Assessment: Mechanical fall after missing some steps with no loss of consciousness Left anterior lateral rib fractures from 4 through 7 without displacement secondary to fall Left acute comminuted proximal humerus fracture secondary to fall Mild lactic acidosis, most likely reactive secondary to fall Diabetes mellitus, type II History of multiple CVAs of the frontal lobe Dementia history Hypertension history Hyperlipidemia GI prophylaxis DVT prophylaxis Full code Plan: Recommend to continue with current medications and management per general surgery services. Patient was admitted as a trauma secondary to mechanical fall with multiple fractures on the left as well as a left humerus fracture Orthopedics consulted and recommending conservative management with no plans for surgical intervention of the left humerus fracture and will continue sling Patient with incentive spirometer at the bedside encouraged keeping close by and using at least 10 times every hour while awake. Patient is refusing to use this as the pain is too intense. Discussed with the patient about high risk for pneumonia development and continued pain if not at least coughing and deep breathing multiple times throughout the day. Patient did have mildly elevated lactic acidosis, most likely reactive secondary to trauma and will monitor closely. Patient also noted to have some possible pleural effusions as noted on chest CT and BNP was 400. Did give small boluses of normal saline and hydration overnight and lactic acid is improved. Discontinued IV fluids Would strongly recommend physical therapy daily and planning for ECF as patient is high risk for falls and has been falling more frequently. ECF is unavailable until Sunday Recommend Accu-Cheks before meals and at bedtime and using sliding scale Home medications will be reviewed and resumed as appropriate Thank you kindly for this consultation. We will continue to follow during hospitalization. The impression and plan of care has been dictated by Mercedez Haines Nurse Practitioner as directed. Dr. Shelley MD I have performed a history and physical examination and medical decision making of this patient, discussed the same with the dictator, and agree with the dictators assessment and plan as written, documented as a scribe. Based on total visit time, I have performed more than 50% of this visit. Objective - Vital Signs Vital signs: Vital Signs Temp 97.8 F 07/16/22 13:53 Pulse 73 07/16/22 13:53 Resp 18 07/16/22 13:53 BP 127/73 07/16/22 13:53 Pulse Ox 94 L 07/16/22 13:53 FiO2 Intake & Output 07/15/22 07/16/22 07/16/22 17:59 06:59 18:59 Intake Total Output Total Balance Intake: IV Invasive Line 1 Oral Output: Urine Other: Voiding Method Urinal Diaper # Voids 2 # Bowel Movements 1 - Labs CBC & Chem 7: 07/15/22 07:27 07/15/22 07:32 Labs: Abnormal Lab Results - Last 24 Hours (Table) 07/15/22 07/15/22 07/16/22 Range/Units 16:52 20:47 07:47 POC Glucose (mg/dL) 111 H 174 H 122 H (70-110) mg/dL 07/16/22 Range/Units 12:31 POC Glucose (mg/dL) 147 H (70-110) mg/dL Assessment and Plan Time with Patient: Less than 30
[2022-07-16 17:28] LABS: Glucose,Whole Blood 146 mg/dL (70-110)
[2022-07-16] MEDS: KETOROLAC 15 MG/ML 1 ML VIAL IVP PRN (19:33)
[2022-07-16 20:24] LABS: Glucose,Whole Blood 296 mg/dL (70-110)
--- NOTE | 2022-07-16 21:10 | P.PN ---
Subjective Progress Note Date: 07/16/22 CHIEF COMPLAINT: Status post fall HISTORY OF PRESENT ILLNESS: The patient is a 77-year-old male status post fall with right humeral fracture, multiple rib fractures. He complains of right hip pain and leg pain. Additional studies were obtained. His is at bedside. He had just been seen by ortho. ROS: No reports of nausea and vomiting. No fevers or chills. No new chest pain. No productive sputum PHYSICAL EXAM: VITAL SIGNS: Reviewed CONSTITUTIONAL: Well developed and in no acute distress. EYES: Conjuctivae without sclera icterus. Extraocular movements grossly intact. HEAD, EARS, NOSE, THROAT: Moist buccal mucosa. Head is atraumatic, normocephalic. Hears conversational speech. No nasal drainage. RESPIRATORY: Non-labored respirations and equal bilateral excursions. CARDIOVASCULAR: Palpable 2+ radial pulses. ABDOMEN: Protuberant MUSCULOSKELETAL: Has left arm sling. Pain along the right hip/knee. SKIN: Good skin turgor. Well perfused. NEUROLOGIC: Cranial nerves II through XII grossly intact. No focal or lateralizing signs. PSYCH: Appropriate affect. Alert and oriented to person, place and time. CLINICAL LABS: Reviewed. Blood sugar glucose elevated. IMAGES: Hip and knee films reviewed without fractures per report. ASSESSMENT: 1. Status post fall 2. Left humerus fracture 3. Multiple rib fractures 4. Right hip pain, right greater than left PLAN: 1. Appreciate orthopedic input. 2. Transfer to [facility] pending MRI results. Objective - Vital Signs Vital signs: Vital Signs Temp 97.4 F L 07/16/22 20:00 Pulse 71 07/16/22 20:00 Resp 20 07/16/22 20:00 BP 154/76 07/16/22 20:00 Pulse Ox 96 07/16/22 20:00 FiO2 Intake & Output 07/16/22 07/16/22 07/17/22 06:59 18:59 06:59 Intake Total 1000 Balance 1000 Intake: Oral 1000 Other: Voiding Method Urinal Diaper # Voids 4 # Bowel Movements 1 - Labs CBC & Chem 7: 07/15/22 07:27 07/15/22 07:32 Labs: Abnormal Lab Results - Last 24 Hours (Table) 07/15/22 07/16/22 07/16/22 Range/Units 20:47 07:47 12:31 POC Glucose (mg/dL) 174 H 122 H 147 H (70-110) mg/dL 07/16/22 07/16/22 Range/Units 17:26 20:22 POC Glucose (mg/dL) 146 H 296 H (70-110) mg/dL
[2022-07-16] MEDS: ATORVASTATIN 40 MG TAB PO SCH (21:21)
[2022-07-16] MEDS: lisinopriL 10 MG TAB PO SCH (21:21)
[2022-07-17] MEDS: KETOROLAC 15 MG/ML 1 ML VIAL IVP PRN ×3 (04:08→21:00)
[2022-07-17] MEDS: ACETAMINOPHEN TAB 500 MG TAB PO SCH ×4 (05:18→23:38)
[2022-07-17 07:11] LABS: Glucose,Whole Blood 137 mg/dL (70-110)
[2022-07-17] MEDS: INSULIN ASPART (NovoLOG) 100 UNIT/ML VIAL SQ SCH ×4 (08:19→21:00)
[2022-07-17] MEDS: traMADol 50 MG TAB PO PRN ×2 (09:11→16:04)
[2022-07-17] MEDS: METOPROLOL TARTRATE 12.5 MG TAB PO SCH ×2 (09:13→21:00)
[2022-07-17] MEDS: PIOGLITAZONE 30 MG TAB PO SCH (09:13)
[2022-07-17] MEDS: PANTOPRAZOLE 40 MG TABLET PO SCH (09:13)
[2022-07-17] MEDS: HEPARIN SODIUM,PORCINE/PF 5,000 UNIT/0.5 ML SYRINGE SQ SCH ×3 (09:13→23:38)
[2022-07-17] MEDS: PARoxetine 10 MG TAB PO SCH (09:13)
[2022-07-17] MEDS: MEMANTINE 10 MG TAB PO SCH ×2 (09:13→21:00)
[2022-07-17] MEDS: FUROSEMIDE 40 MG TAB PO SCH (09:13)
[2022-07-17] MEDS: LIDOCAINE 5% PATCH TOPICAL SCH (09:14)
[2022-07-17] MEDS: SENNOSIDES 8.6 MG TAB PO SCH ×2 (09:14→21:01)
[2022-07-17] MEDS: LACTULOSE 20 GM/30 ML CUP PO SCH (09:23)
[2022-07-17 11:04] LABS: Glucose,Whole Blood 189 mg/dL (70-110)
--- NOTE | 2022-07-17 11:56 | P.PN ---
Subjective Progress Note Date: 07/17/22 CHIEF COMPLAINT:Fall with left rib fractures and left humeral fracture HISTORY OF PRESENT ILLNESS: Patient admitted to the trauma service regarding his fall and trauma with fractures to the left ribs and left humerus. Patient scheduled for MRI of the right hip today for further evaluation of his pain. He is felt orthopedic service. He does report his pain is controlled. He is complaining of loose bowel movements. He had been constipated and is currently receiving lactulose. He denies any nausea or vomiting. Afebrile. Glucose 189 PHYSICAL EXAM: VITAL SIGNS: Reviewed GENERAL: Well-developed in no acute distress. HEENT: No sclera icterus. Extraocular movements grossly intact. Moist buccal mucosa. Head is atraumatic, normocephalic. Hears conversational speech. No nasal drainage. NECK: Supple without lymphadenopathy. CHEST: Non-labored respirations and equal bilateral excursions. CARDIOVASCULAR: Palpable 2+ radial pulses. ABDOMEN: Soft. Nondistended. Nontender. MUSCULOSKELETAL: No clubbing or cyanosis. Left arm in sling NEUROLOGIC: No focal or lateralizing signs. Cranial nerves II through XII grossly intact. PSYCH: Appropriate affect. Alert and oriented to person, place and time. SKIN: Well perfused. Good skin turgor. ASSESSMENT: 1. Acute fall with trauma to ribs and left 2. Anterior nondisplaced Left rib fractures 4 through 7 secondary to fall 3. Left humeral fracture secondary to fall 4. History of CVA and dementia 5. Mildly elevated lactic acid 6. History of diabetes mellitus 7. History of hypertension 8. Hyperlipidemia 9. History of prostate cancer with previous prostatectomy 11. Leukocytosis PLAN: -Transfer to [facility] pending MRI results -Await further orthopedic recommendations -Continue pain management -Discontinue lactulose due to diarrhea -Continue to work with PT OT -Encouraged patient to use incentive spirometer -Continue regular diet -GI prophylaxis Protonix and DVT prophylaxis subcu heparin Physician Senior Qualitative Researcher note has been reviewed by physician. Signing provider agrees with the documented findings, assessment, and plan of care. Objective - Vital Signs Vital signs: Vital Signs Temp 97.4 F L 07/17/22 07:10 Pulse 87 07/17/22 07:10 Resp 18 07/17/22 07:10 BP 150/75 07/17/22 07:10 Pulse Ox 98 07/17/22 08:36 FiO2 Intake & Output 07/16/22 07/17/22 07/17/22 18:59 06:59 18:59 Intake Total 1000 590 Balance 1000 590 Intake: Oral 1000 590 Other: Voiding Method Urinal Bedside Commode Bedside Commode Diaper Urinal Urinal Diaper Diaper # Voids 4 3 1 # Bowel Movements 1 1 1 - Labs CBC & Chem 7: 07/15/22 07:27 07/15/22 07:32 Labs: Abnormal Lab Results - Last 24 Hours (Table) 07/16/22 07/16/22 07/16/22 Range/Units 12:31 17:26 20:22 POC Glucose (mg/dL) 147 H 146 H 296 H (70-110) mg/dL 07/17/22 07/17/22 Range/Units 07:09 11:03 POC Glucose (mg/dL) 137 H 189 H (70-110) mg/dL
--- NOTE | 2022-07-17 12:16 | P.PN ---
Subjective Progress Note Date: 07/17/22 Patient 77-year-old male presents emergency department after fall. Patient was walking down some steps to the garage when he missed step. He fell landing sideways. He landed on his left side. After the fall he complained of right hip pain, left upper back pain, left shoulder pain and left elbow pain. Denies any head injury. No loss of consciousness. Does not take any anticoagulation medications. Denies any abdominal pain. No other the patient has history of frontal lobe CVA and history of dementia and the patient is considered to be at high risk of falls. The patient has had previous falls in the past. No head injury. No altered mentation this point in time. His pain is around 4 out of 10 in severity. The patient has undergone further investigation the patient was found to have no acute abnormalities and the CAT scan of the head and cervical spine. CAT scan of the chest showed acute fractures involving the left anterior lateral ribs 4 through 7 without displacement. There is also mild cardiomegaly and pulmonary vascular congestion. There is also evidence of cholelithiasis. X-ray of the elbow showed no evidence of any acute abnormalities. X-ray of the shoulder showed an acute comminuted fracture involving the proximal humerus. X- ray of the hip showed no acute fractures. The patient had mild to moderate right knee and right hip osteoarthrosis. For now, the left upper extremity is placed in a splint. Orthopedic surgery has been consulted. From the pulmonary standpoint, the patient's currently on room air oxygen. Denies having any significant shortness of breath. The lactic acid level is down to 2.5. Glucose 186. The risk of 15.8 with a hemoglobin of 14.3. Electrodes are all within normal limits. BUN is at 70 with a creatinine of 0.7. LFTs are within normal limits. On today's evaluation of 07/14/2022, the patient is complaining of pain in his left rib cage. He remains on room air oxygen. Hemoglobin is at 12.8, bili was 11.6. Lactic acid level dropped down to 1.8. He will left humerus fracture. No other new complaints otherwise. His pain is about 7 out of 10 in severity. He is using a combination of morphine sulfate and Toradol for pain control. The patient was also seen by orthopedic surgery regarding the left proximal humeral fracture. The recommendation was nonsurgical treatment. No be given a sling Is evaluation of the 2022, the patient is being seen for a follow-up. The patient is still having some left-sided chest pain following his trauma and traumatic left-sided rib fractures. Blood work from today shows a hemoglobin of 12.2, there is +0.7, platelet count is at 195. BUN of 21 and a creatinine of 0.8. The patient will not need surgical intervention regarding his left humeral fracture. He is currently on 2 L of oxygen by nasal cannula. He reports that his pain. Is 6 out of 10. His receiving Toradol, IV morphine for pain control. He also has Tylenol as needed. He is using the INCENTIVE spirometer. 07/16/2022, the patient is stable, still complaining of pain in his left chest/rib cage and patient is currently on tramadol. He has relatively adequate pain control. X-ray of the hip and the knee came back negative and the patient has a humeral fracture. Using incentive spirometer and he remains on 2 L of oxygen by nasal cannula. Passing bowel movements. The patient is seen today 07/17/2022 in follow-up on the regular medical floor. He is currently sitting up in bed. Awake and alert in no acute distress. He is still having left-sided rib pain and left upper extremity pain. He is maintaining good O2 saturations in the 90s on room air. He is working with the incentive spirometer. He remains on heparin for DVT prophylaxis. Working with PT and OT. Objective - Vital Signs Vital signs: Vital Signs Temp 97.4 F L 07/17/22 07:10 Pulse 87 07/17/22 07:10 Resp 18 07/17/22 07:10 BP 150/75 07/17/22 07:10 Pulse Ox 98 07/17/22 08:36 FiO2 Intake & Output 07/16/22 07/17/22 07/17/22 18:59 06:59 18:59 Intake Total 1000 590 Balance 1000 590 Intake: Oral 1000 590 Other: Voiding Method Urinal Bedside Commode Bedside Commode Diaper Urinal Urinal Diaper Diaper # Voids 4 3 1 # Bowel Movements 1 1 1 - Exam Alert, 77-year-old male. Currently on room air oxygen. No signs of any acute respiratory distress. Head exam was generally normal. There was no scleral icterus or corneal arcus. Mucous membranes were moist. Neck was supple and without jugular venous distension, thyromegaly, or carotid bruits. Carotids were easily palpable bilaterally. There was no adenopathy. Lungs sounds are diminished bilaterally. Otherwise clear. Breath sounds equal and symmetrical. No evidence of any flail chest. Cardiac exam revealed the PMI to be normally situated and sized. The rhythm was regular and no extrasystoles were noted. The first and second heart sounds were normal and physiologic splitting of the second heart sound was noted. There were no murmurs, rubs, clicks, or gallops. Abdominal exam revealed normal bowel sounds. The abdomen was soft, non-tender, and without masses, organomegaly, or appreciable enlargement of the abdominal aorta. Extremities revealed that the patient's left upper extremity has been placed in a splint, pulses are equal and symmetrical in all 4 extremities. Examination of the skin revealed no evidence of significant rashes, suspicious appearing nevi or other concerning lesions. Neurologically, the patient is slow in his speech. Occasionally stutters. His memory isn't impaired. No focal neurological deficits. - Labs CBC & Chem 7: 07/15/22 07:27 07/15/22 07:32 Labs: Abnormal Lab Results - Last 24 Hours (Table) 07/16/22 07/16/22 07/16/22 Range/Units 12:31 17:26 20:22 POC Glucose (mg/dL) 147 H 146 H 296 H (70-110) mg/dL 07/17/22 07/17/22 Range/Units 07:09 11:03 POC Glucose (mg/dL) 137 H 189 H (70-110) mg/dL Assessment and Plan Assessment: Acute fall Traumatic left-sided rib fractures, nondisplaced, fourth through seventh, still having some skeletal chest wall pain on the left. Chest wall pain secondary to above Left humeral fracture History of frontal CVA and dementia. The patient is considered to be at high risk of falls Mild lactic acidosis, improving Diabetes mellitus type 2 History of prostate cancer with previous prostatectomy Hypertension Hyperlipidemia Plan: The patient was seen and evaluated Currently stable and on room air Working with the incentive spirometer Working with PT/OT MRI of the right hip pending Most likely will need subacute rehabilitation We will continue to follow I have personally seen and examined the patient, performed the documentation and the assessment and plan as written. Number of minutes spent on the visit: 10.
--- NOTE | 2022-07-17 13:38 | P.PN ---
Subjective Progress Note Date: 07/17/22 - Reason for Consult Consult date: 07/13/22 Medical management trauma admission secondary to fall - History of Present Illness This is a 77-year-old male who presented to the emergency department after falling mechanically in the garage after missing a step and his left leg giving out on him causing him to fall and landed directly onto his arm, left side, and left leg. Patient was admitted under trauma services for a fall and was noted to have multiple left-sided rib fractures on chest CT anteriorly of the lateral ribs 4 through 7 without any displacement. Patient also had multiple other imagings done including a shoulder x-ray which shows an acute comminuted proximal humerus fracture in which orthopedics has been consulted and pending. Patient continues with an Patrick wrap and sling at this time. Patient knee and other x-rays were negative. Patient reports he sees Dr. Layton in the outpatient setting with a past medical history of CVA, dementia, frequent falls, diabetes mellitus, hyperlipidemia, hypertension, frontal lobe strokes 3, prostate cancer. Patient reports he was a former smoker and denies any other illicit drug use or alcohol use. Labs reviewed on admission showed a WBC of 10.1, hemoglobin 14.8, platelets 255, sodium 137, potassium 4.0, creatinine 0.76, blood sugars mildly elevated, lipase was negative at 31. Patient did have a lactic acid this morning of 3.7 and repeat is 2.5. Patient is requiring oxygen at 4 L and does not normally wear oxygen in the outpatient setting. Patient is reporting immense pain on his left side including his left shoulder. PT/OT to evaluate the patient. Patient also had chest CT that was done which showed acute left anterior lateral ribs 4 through 7 fractures without displacement, mild cardiomegaly with pulmonary vascular congestion to correlate with a serum BNP cholelithiasis, and initially with concerns of a pulmonary contusion and pulmonary was consulted for this reason. Will obtain a BNP and hold off on excessive fluids at this time. Would recommend follow-up labs and will await BNP. 07/14/2022 Patient is seen and evaluated in follow-up today currently sitting up in the chair and per nursing staff was almost maximum assist getting him up. Patient continues to report shortness of breath and pain with inspiration and was encouraged to continue using incentive spirometer at least 10 times every hour along with coughing and deep breathing and patient is refusing. Nursing staff reports he has been refusing incentive spirometer as well. Patient reports he will not be doing that as it hurts too much. Discussed with the patient at length about being high risk for developing pneumonia. Discussed with him about pain management and better control and will need to increase activity as tolerated. Patient is medically stable and planning for ECF. Patient does have upper left humeral fracture and evaluated by orthopedics recommending conservative management at this time and will continue sling and pain management. Patient is currently afebrile with no reports of chest pain or palpitations. Patient denies nausea or vomiting and tolerating diet. Would recommend PT/OT therapy daily. 07/15/2022 Patient evaluated on stepdown unit no acute events overnight. Patient reports improved breathing and using incentive spirometer getting to about 750 mls. He reports pain as uncontrolled however does state sitting up in the chair is he lping the pain. He continues with immobilizer sling to his left upper extremity. Patient is issues with intermittent urinary retention requiring a bladder scan and monitoring. Plan is for discharge to rehab on Sunday. He remains afebrile, he is on 2 L of nasal cannula as needed. 07/16/2022 Patient is evaluated today on the medical floor. He does report an improvement in his pain. He is receiving IV Toradol every 6 hours as well as oral tramadol. He does report pain to right knee and right hip after falling prior to admission. Bilateral hip showing no acute process and mild bilateral hip osteoarthrosis. Bilateral knee xray showing no acute osseous pathology and mild tricompartmental osteoarthritic changes bilaterally. Blood glucose remains stable. Patient is afebrile, heart rate 73, blood pressure 127/73, 94% room air. 07/17/2022 Patient is seen and evaluated in follow-up this morning no acute issues overnight. Patient continues to be extremely weak and having right-sided hip pain and orthopedics has been reevaluated recommending an MRI of the hip. Patient was also being given lactulose as patient was having constipation issues although has been refusing and would recommend discontinuing this or making it as needed if having constipation. Patient will be going to ECF once MRI of the hip is done and orthopedic recommendations are made. Patient is currently afebrile with no reports of chest pain or palpitations. Patient x-ray showing osteoarthritic changes with no fractures or dislocations noted. Patient is medically stable and would encouraged to continue using incentive spirometer at least 10 times every hour while awake. Review of systems: Constitutional: No reports of fatigue, fever, or chills Cardiovascular: No reports of chest pain or palpitations Respiratory: No reports of shortness of breath or cough GI: No reports of nausea, vomiting, or diarrhea : No reports of dysuria or retention Neurovascular: No reports of weakness or numbness All medications have been reviewed PHYSICAL EXAMINATION: GENERAL: The patient is alert and oriented x3, Well developed, well nourished. Obese HEENT: Pupils are round and equally reacting to light. EOMI. no scleral icterus. No conjunctival pallor. Normocephalic, atraumatic. No pharyngeal erythema. No thyromegaly. CARDIOVASCULAR: S1 and S2 muffled PULMONARY: diminished breath sounds bilaterally with no wheezing or rhonchi noted. ABDOMEN: soft. Nontender on exam. obese. non-distended, normoactive bowel sounds. No palpable organomegaly. MUSCULOSKELETAL: No joint swelling or deformity. Left upper arm in sling and Patrick wrapped currently EXTREMITIES: No cyanosis, clubbing, or pedal edema. NEUROLOGICAL: Gross neurological examination did not reveal any focal deficits. Diffuse weakness SKIN: No rashes. Assessment: Mechanical fall after missing some steps with no loss of consciousness Left anterior lateral rib fractures from 4 through 7 without displacement secondary to fall Left acute comminuted proximal humerus fracture secondary to fall Mild lactic acidosis, most likely reactive secondary to fall, improved Diabetes mellitus, type II History of multiple CVAs of the frontal lobe Dementia history Hypertension history Hyperlipidemia GI prophylaxis DVT prophylaxis Full code Plan: Recommend to continue with current medications and management per general surgery services. Patient was admitted as a trauma secondary to mechanical fall with multiple fractures on the left as well as a left humerus fracture Orthopedics re-consulted as patient is having some right hip and extremity pain and currently an MRI of the hip is ordered and pending and awaiting input and recommendations per orthopedics. Patient does continue with the left humerus fracture and continuing was leaning and conservative management for now Patient with incentive spirometer at the bedside and encouraged to continue using at least 10 times every hour while awake Would strongly recommend physical therapy daily and planning for ECF as patient is high risk for falls and has been falling more frequently. ECF is being planned in [place] once medically stable and discharged from surgery services Recommend Accu-Cheks before meals and at bedtime and using sliding scale Home medications will be reviewed and resumed as appropriate Thank you kindly for this consultation. We will continue to follow during hospitalization. The impression and plan of care has been dictated by Kathleen Coombs, nurse practitioner as directed. Dr. Shelley MD I have performed a history and examination and MDM of this patient, discussed the same with the dictator, and agree with the dictator's assessment and plan as written ,documented as a scribe. Based on total visit time, I have performed more than 50% of the visit. Any additional findings or plans will be noted. Objective - Vital Signs Vital signs: Vital Signs Temp 97.4 F L 07/17/22 07:10 Pulse 87 07/17/22 07:10 Resp 18 07/17/22 07:10 BP 150/75 07/17/22 07:10 Pulse Ox 98 07/17/22 08:36 FiO2 Intake & Output 07/16/22 07/17/22 07/17/22 18:59 06:59 18:59 Intake Total 1000 590 Balance 1000 590 Intake: Oral 1000 590 Other: Voiding Method Urinal Bedside Commode Bedside Commode Diaper Urinal Urinal Diaper Diaper # Voids 4 3 1 # Bowel Movements 1 1 1 - Labs CBC & Chem 7: 07/15/22 07:27 07/15/22 07:32 Labs: Abnormal Lab Results - Last 24 Hours (Table) 07/16/22 07/16/22 07/16/22 Range/Units 12:31 17:26 20:22 POC Glucose (mg/dL) 147 H 146 H 296 H (70-110) mg/dL 07/17/22 Range/Units 07:09 POC Glucose (mg/dL) 137 H (70-110) mg/dL
--- NOTE | 2022-07-17 14:08 | MR ---
EXAMINATION TYPE: MR hip RT wo con DATE OF EXAM: 07/17/2022 COMPARISON: Bilateral hip x-rays July 16, 2022 HISTORY: Right hip pain S/P fall. Standard multiplanar, multisequence MRI departmental protocol Multiplanar, multisequence images of the pelvis focusing on right hip were acquired without contrast. FINDINGS: Femoral head shapes are maintained bilaterally. There is symmetric mild axial joint space loss in bot h hips. No significant effusions are present bilaterally. No serpiginous diminished T1 signal to sugg est avascular necrosis in either femoral head. Femoral head shapes are maintained bilaterally. No sharron picious increased T2 signal or edema in the visualized portion of both femurs. There is however irregular linear T1 signal involving the right superior pelvic ramus with surroundin g T2 signal or edema seen best on axial image 23 and coronal image 6 consistent with acute nondisplac ed fracture. This is in close proximity to the acetabulum but no extension into the joint space is no pedor. Additional subtle linear T1 signal with faint edema involving the inferior right pelvic ramus is suspicious for nondisplaced fracture axial image 15 for reference. In retrospect neither well-seen o n recent x-ray. Pubic symphysis is intact. There appears to be linear T1 signal having both vertical and horizontal component in the left pubis coronal image 4 with horizontal component extending into the superior pelvic ramus coronal image 5 wi th surrounding increased T2 signal or edema. Left inferior pubic ramus is intact. There is oblique di minished T1 signal involving the right sacrum with surrounding increased T2 signal or edema. Symmetric generalized muscular atrophy is seen. There is mild to moderate subcutaneous edema along th e lateral aspect of both hips noted. No well-formed fluid collection or hematoma is seen. Prostate is not seen and presumed surgically absent. Sacroiliac joints appear symmetric and within no rmal limits. IMPRESSION: There are acute nondisplaced fractures involving the right superior and inferior pelvic r ami along with the right aspect of the sacrum. There is acute nondisplaced fracture through the left pubic bone extending into the central left superior pelvic ramus. A Yellow level critical message alert has been initiated for Kellie Santoro MD via the [employer] Critical Results System on 07/17/2022 2:05 PM. This message alert has been sent to Kellie Gusman MD via the preferences provided by the clinician for the receipt of Radiology Critical Findi ngs. Message ID [id number].
[2022-07-17 17:04] LABS: Glucose,Whole Blood 156 mg/dL (70-110)
[2022-07-17 20:04] LABS: Glucose,Whole Blood 163 mg/dL (70-110)
[2022-07-17] MEDS: ATORVASTATIN 40 MG TAB PO SCH (21:00)
[2022-07-17] MEDS: lisinopriL 10 MG TAB PO SCH (21:00)
[2022-07-18] MEDS: ACETAMINOPHEN TAB 500 MG TAB PO SCH ×2 (05:28→09:36)
[2022-07-18 07:02] LABS: Glucose,Whole Blood 137 mg/dL (70-110)
[2022-07-18 07:28] VITALS: RESP 18
[2022-07-18] MEDS: HEPARIN SODIUM,PORCINE/PF 5,000 UNIT/0.5 ML SYRINGE SQ SCH (09:35)
[2022-07-18] MEDS: PIOGLITAZONE 30 MG TAB PO SCH (09:36)
[2022-07-18] MEDS: KETOROLAC 15 MG/ML 1 ML VIAL IVP PRN (09:36)
[2022-07-18] MEDS: INSULIN ASPART (NovoLOG) 100 UNIT/ML VIAL SQ SCH ×2 (09:36→13:03)
[2022-07-18] MEDS: MEMANTINE 10 MG TAB PO SCH (09:36)
[2022-07-18] MEDS: PANTOPRAZOLE 40 MG TABLET PO SCH (09:36)
[2022-07-18] MEDS: PARoxetine 10 MG TAB PO SCH (09:37)
[2022-07-18] MEDS: LIDOCAINE 5% PATCH TOPICAL SCH (09:37)
[2022-07-18] MEDS: METOPROLOL TARTRATE 12.5 MG TAB PO SCH (09:37)
[2022-07-18] MEDS: SENNOSIDES 8.6 MG TAB PO SCH (09:38)
--- NOTE | 2022-07-18 10:09 | P.PN ---
Subjective Progress Note Date: 07/18/22 This patient is a 77- year old male who orthopedic surgery is following for a left proximal humerus fracture. We were re-consulted in regards to right hip pain. Patient was evaluated by Dr. Mirza 07/16/22, MRI of the right hip and pelvis was ordered. MRI was obtained yesterday and revealed acute nondisplaced fractures of the superior and inferior pubic rami. Per radiology report there is also a left superior pubic ramus fracture. Patient is examined bedside this morning. He states he is having no pain in the right hip at this time. He states his pain is increased when he attempts to ambulate. Pain in his left shoulder is well controlled. He has no new complaints at this time. Objective - Vital Signs Vital signs: Vital Signs Temp 98.6 F 07/18/22 07:00 Pulse 68 07/18/22 07:00 Resp 18 07/18/22 07:00 BP 173/83 07/18/22 07:00 Pulse Ox 95 07/18/22 07:00 FiO2 Intake & Output 07/17/22 07/18/22 07/18/22 18:59 06:59 18:59 Intake Total 590 Balance 590 Intake: Oral 590 Other: Voiding Method Bedside Commode Bedside Commode Bedside Commode Urinal Urinal Urinal Diaper Diaper Diaper # Voids 1 2 1 # Bowel Movements 1 1 - Exam On examination, patient is sitting up in bed in no apparent distress. He is alert and orientated noted 3. On inspection of the left upper extremity, the extremity is immobilized in a sling. There is an area of ecchymosis over the anterior shoulder. No open wounds or lacerations. Motor and sensory function is intact of the left upper extremity. Radial pulse easily palpable. On inspection of the bilateral lower extremities, no obvious deformities or signs of trauma. There is no pain with passive range of motion of the right hip. There is no pain with passive range motion of the left hip. Motor and sensory function is intact in bilateral lower extremities. Bilateral extremities were well perfused. No pain with palpation of the bilateral knees, lower leg, ankle, foot. - Labs CBC & Chem 7: 07/15/22 07:27 07/15/22 07:32 Labs: Abnormal Lab Results - Last 24 Hours (Table) 07/17/22 07/17/22 07/17/22 Range/Units 11:03 17:03 19:56 POC Glucose (mg/dL) 189 H 156 H 163 H (70-110) mg/dL 07/18/22 Range/Units 07:01 POC Glucose (mg/dL) 137 H (70-110) mg/dL Assessment and Plan Assessment: Left proximal humerus fracture Right superior and inferior pubic rami fractures Left superior pubic ramus fracture Plan: - Clinical imaging findings were reviewed with Dr. Mirza. No surgical intervention recommended for pelvic fractures. Patient may weight-bear to tolerance on the bilateral lower extremities with ambulatory aid. - Patient was discussed with physical therapy. Due to patient's left proximal humerus fracture, he will utilize a rasheed-walker for ambulation. - Continue immobilization of left upper extremity in the sling. Nonweightbearing left upper extremity. - Patient is okay for discharge from orthopedic standpoint. He should follow-up in the office in 1 week for repeat x-rays of the pelvis and left shoulder.
--- NOTE | 2022-07-18 10:48 | P.DS ---
Providers Date of admission: 07/12/22 20:14 Expected date of discharge: 07/18/22 Attending physician: Kellie Santoro Consults: 07/12/22 20:14 Consult Physician Routine Consulting Provider: Benson Abreu Consult Reason/Comments: Pulmonary Contusion Do you want consulting provider notified?: Yes Consult Physician Routine Consulting Provider: Robi Alford Consult Reason/Comments: medical management Do you want consulting provider notified?: Yes Consult to Anesthesia Routine Consulting Provider: Anesthesia,Services Consult Reason/Comments: Pain Management 07/13/22 08:18 Consult Physician Routine Consulting Provider: Jeronimo Mirza Consult Reason/Comments: left humerus fracture Do you want consulting provider notified?: Yes 07/16/22 12:28 Consult Physician Routine Consulting Provider: Jeronimo Mirza Consult Reason/Comments: s/p fall, bilateral hip/knee pain re-consult Do you want consulting provider notified?: Yes Primary care physician: Physician Nonstaff Hospital Course: Discharge diagnosis 1. Acute fall with trauma 2. Anterior nondisplaced Left rib fractures 4 through 7 secondary to fall 3. Left humeral fracture secondary to fall 4. Right superior and inferior pubic rami fractures and Left superior pubic ramus fracture 5. History of CVA and dementia 6. Mildly elevated lactic acid 7. History of diabetes mellitus 8. History of hypertension 9. Hyperlipidemia 10. History of prostate cancer with previous prostatectomy 11. Leukocytosis resolved Hospital course This is a 77-year-old male presented to the hospital after a fall in the garage. He complained of left rib cage pain, hip, back and left arm pain. Patient was found to have evidence of left rib fractures 4 through 7 and a left humeral fracture. Patient's arm was placed in a sling. He was receiving pain management. He continued to complain of hip pain. Orthopedic service was in to reevaluate patient and MRI of the hip was completed and showed Right superior and inferior pubic rami fractures and Left superior pubic ramus fracture. Orthopedic service has cleared patient for discharge. They're not recommending any surgical intervention. They did place patient on weight bearing restrictions. Patient has been cleared by economic consultant physicians. His pain is controlled. He is tolerating diet. He is afebrile. He is stable for discharge. Physician Jewelry Inspector note has been reviewed by physician. Signing provider agrees with the documented findings, assessment, and plan of care. Patient Condition at Discharge: Stable Plan - Discharge Summary Discharge Rx Participant: No New Discharge Prescriptions: New Lidocaine 5% Patch [Lidoderm] 1 patch TOPICAL DAILY #7 patch Ibuprofen [Motrin] 600 mg PO Q8HR PRN #30 tab PRN Reason: Pain Acetaminophen Tab [Tylenol] 1,000 mg PO Q6HR PRN #30 tablet PRN Reason: Pain No Action Turmeric Root Extract [Turmeric] 500 mg PO HS Semaglutide [Ozempic] 1 mg SQ MO Memantine [Namenda] 10 mg PO BID Furosemide [Lasix] 40 mg PO Q2D Trospium Chloride [Sanctura XR] 60 mg PO DAILY Omeprazole [PriLOSEC] 40 mg PO DAILY Pioglitazone [Actos] 30 mg PO DAILY Metoprolol Tartrate [Lopressor] 12.5 mg PO BID PARoxetine HCL 30 mg PO DAILY Atorvastatin [Lipitor] 40 mg PO HS Ubidecarenone [Co Q-10] 300 mg PO HS Clopidogrel [Plavix] 75 mg PO DAILY lisinopriL [Zestril] 10 mg PO HS Meloxicam [Mobic] 7.5 mg PO DAILY Gabapentin [Neurontin] 300 mg PO TID PRN PRN Reason: Pain Vitamin B Complex 1 cap PO DAILY Discharge Medication List Atorvastatin [Lipitor] 40 mg PO HS 07/12/22 [History] Clopidogrel [Plavix] 75 mg PO DAILY 07/12/22 [History] Furosemide [Lasix] 40 mg PO Q2D 07/12/22 [History] Gabapentin [Neurontin] 300 mg PO TID PRN 07/12/22 [History] Meloxicam [Mobic] 7.5 mg PO DAILY 07/12/22 [History] Memantine [Namenda] 10 mg PO BID 07/12/22 [History] Metoprolol Tartrate [Lopressor] 12.5 mg PO BID 07/12/22 [History] Omeprazole [PriLOSEC] 40 mg PO DAILY 07/12/22 [History] PARoxetine HCL 30 mg PO DAILY 07/12/22 [History] Pioglitazone [Actos] 30 mg PO DAILY 07/12/22 [History] Semaglutide [Ozempic] 1 mg SQ MO 07/12/22 [History] Trospium Chloride [Sanctura XR] 60 mg PO DAILY 07/12/22 [History] Turmeric Root Extract [Turmeric] 500 mg PO HS 07/12/22 [History] Ubidecarenone [Co Q-10] 300 mg PO HS 07/12/22 [History] Vitamin B Complex 1 cap PO DAILY 07/12/22 [History] lisinopriL [Zestril] 10 mg PO HS 07/12/22 [History] Acetaminophen Tab [Tylenol] 1,000 mg PO Q6HR PRN #30 tablet 07/18/22 [Rx] Ibuprofen [Motrin] 600 mg PO Q8HR PRN #30 tab 07/18/22 [Rx] Lidocaine 5% Patch [Lidoderm] 1 patch TOPICAL DAILY #7 patch 07/18/22 [Rx] Follow up Appointment(s)/Referral(s): None,Stated [REFERRING] - 1-2 days Jeronimo Mirza MD [Medical Doctor] - 1 Week Activity/Diet/Wound Care/Special Instructions: Medicine service to complete discharge med rec Activity: Patient may weight-bear to tolerance on the bilateral lower extremities with ambulatory aid. Continue immobilization of left upper extremity in the sling. Nonweightbearing left upper extremity. Discharge Disposition: TRANSFER TO SNF/ECF
[2022-07-18 11:09] LABS: Glucose,Whole Blood 137 mg/dL (70-110)
[2022-07-18 11:16] VITALS: BMI 33.4
[2022-07-18 12:36] VITALS: BP 154/74; PULSE 65; TEMP 97.7
--- NOTE | 2022-07-18 12:45 | P.PN ---
Subjective Progress Note Date: 07/18/22 Patient 77-year-old male presents emergency department after fall. Patient was walking down some steps to the garage when he missed step. He fell landing sideways. He landed on his left side. After the fall he complained of right hip pain, left upper back pain, left shoulder pain and left elbow pain. Denies any head injury. No loss of consciousness. Does not take any anticoagulation medications. Denies any abdominal pain. No other the patient has history of frontal lobe CVA and history of dementia and the patient is considered to be at high risk of falls. The patient has had previous falls in the past. No head injury. No altered mentation this point in time. His pain is around 4 out of 10 in severity. The patient has undergone further investigation the patient was found to have no acute abnormalities and the CAT scan of the head and cervical spine. CAT scan of the chest showed acute fractures involving the left anterior lateral ribs 4 through 7 without displacement. There is also mild cardiomegaly and pulmonary vascular congestion. There is also evidence of cholelithiasis. X-ray of the elbow showed no evidence of any acute abnormalities. X-ray of the shoulder showed an acute comminuted fracture involving the proximal humerus. X- ray of the hip showed no acute fractures. The patient had mild to moderate right knee and right hip osteoarthrosis. For now, the left upper extremity is placed in a splint. Orthopedic surgery has been consulted. From the pulmonary standpoint, the patient's currently on room air oxygen. Denies having any significant shortness of breath. The lactic acid level is down to 2.5. Glucose 186. The risk of 15.8 with a hemoglobin of 14.3. Electrodes are all within normal limits. BUN is at 70 with a creatinine of 0.7. LFTs are within normal limits. On today's evaluation of 07/14/2022, the patient is complaining of pain in his left rib cage. He remains on room air oxygen. Hemoglobin is at 12.8, bili was 11.6. Lactic acid level dropped down to 1.8. He will left humerus fracture. No other new complaints otherwise. His pain is about 7 out of 10 in severity. He is using a combination of morphine sulfate and Toradol for pain control. The patient was also seen by orthopedic surgery regarding the left proximal humeral fracture. The recommendation was nonsurgical treatment. No be given a sling Is evaluation of the 2022, the patient is being seen for a follow-up. The patient is still having some left-sided chest pain following his trauma and traumatic left-sided rib fractures. Blood work from today shows a hemoglobin of 12.2, there is +0.7, platelet count is at 195. BUN of 21 and a creatinine of 0.8. The patient will not need surgical intervention regarding his left humeral fracture. He is currently on 2 L of oxygen by nasal cannula. He reports that his pain. Is 6 out of 10. His receiving Toradol, IV morphine for pain control. He also has Tylenol as needed. He is using the INCENTIVE spirometer. 07/16/2022, the patient is stable, still complaining of pain in his left chest/rib cage and patient is currently on tramadol. He has relatively adequate pain control. X-ray of the hip and the knee came back negative and the patient has a humeral fracture. Using incentive spirometer and he remains on 2 L of oxygen by nasal cannula. Passing bowel movements. The patient is seen today 07/17/2022 in follow-up on the regular medical floor. He is currently sitting up in bed. Awake and alert in no acute distress. He is still having left-sided rib pain and left upper extremity pain. He is maintaining good O2 saturations in the 90s on room air. He is working with the incentive spirometer. He remains on heparin for DVT prophylaxis. Working with PT and OT. The patient is seen today 07/18/2022 in follow-up on the regular medical floor. He is awake and alert in no acute distress. Maintaining good O2 saturations in the 90s on room air. Continues to work with the incentive spirometer. Pain is fairly well controlled. MRA of the pelvis revealed acute nondisplaced fractures involving the right superior and inferior pelvic rami along with the right aspect of the sacrum. There is acute nondisplaced fracture through the left pubic bone extending into the central left superior pelvic ramus. No surgical intervention recommended per orthopedic surgery. The plan is for discharge to subacute rehabilitation. Objective - Vital Signs Vital signs: Vital Signs Temp 97.7 F 07/18/22 12:35 Pulse 65 07/18/22 12:35 Resp 18 07/18/22 12:35 BP 154/74 07/18/22 12:35 Pulse Ox 95 07/18/22 07:00 FiO2 Intake & Output 07/17/22 07/18/22 07/18/22 18:59 06:59 18:59 Intake Total 590 Balance 590 Weight 99.79 kg Intake: Oral 590 Other: Voiding Method Bedside Commode Bedside Commode Bedside Commode Urinal Urinal Urinal Diaper Diaper Diaper # Voids 1 2 1 # Bowel Movements 1 1 - Exam Alert, 77-year-old male. Sitting up in bed. Currently on room air. No signs of any acute respiratory distress. Head exam was generally normal. There was no scleral icterus or corneal arcus. Mucous membranes were moist. Neck was supple and without jugular venous distension, thyromegaly, or carotid bruits. Carotids were easily palpable bilaterally. There was no adenopathy. Lungs sounds are diminished bilaterally. Otherwise clear. Breath sounds equal and symmetrical. No evidence of any flail chest. Cardiac exam revealed the PMI to be normally situated and sized. The rhythm was regular and no extrasystoles were noted. The first and second heart sounds were normal and physiologic splitting of the second heart sound was noted. There were no murmurs, rubs, clicks, or gallops. Abdominal exam revealed normal bowel sounds. The abdomen was soft, non-tender, and without masses, organomegaly, or appreciable enlargement of the abdominal aorta. Extremities revealed that the patient's left upper extremity has been placed in a splint, pulses are equal and symmetrical in all 4 extremities. Examination of the skin revealed no evidence of significant rashes, suspicious appearing nevi or other concerning lesions. Neurologically, the patient is slow in his speech. Occasionally stutters. His memory isn't impaired. No focal neurological deficits. - Labs CBC & Chem 7: 07/15/22 07:27 07/15/22 07:32 Labs: Abnormal Lab Results - Last 24 Hours (Table) 07/17/22 07/17/22 07/18/22 Range/Units 17:03 19:56 07:01 POC Glucose (mg/dL) 156 H 163 H 137 H (70-110) mg/dL 07/18/22 Range/Units 11:08 POC Glucose (mg/dL) 137 H (70-110) mg/dL Assessment and Plan Assessment: Acute fall Traumatic left-sided rib fractures, nondisplaced, fourth through seventh, still having some skeletal chest wall pain on the left. Chest wall pain secondary to above Left humeral fracture Right superior and inferior pubic rami fractures, left superior pubic ramus fracture History of frontal CVA and dementia. The patient is considered to be at high risk of falls Mild lactic acidosis, improving Diabetes mellitus type 2 History of prostate cancer with previous prostatectomy Hypertension Hyperlipidemia Plan: The patient was seen and evaluated MRI of the hip, medications and labs reviewed Currently stable and on room air Working with the incentive spirometer Cleared for discharge from the pulmonary standpoint Most likely will need subacute rehabilitation I have personally seen and examined the patient, performed the documentation and the assessment and plan as written. Number of minutes spent on the visit: 10.
[2022-07-18] MEDS: traMADol 50 MG TAB PO PRN (13:19)
--- NOTE | 2022-07-18 15:00 | P.PN ---
Subjective Progress Note Date: 07/18/22 - Reason for Consult Consult date: 07/13/22 Medical management trauma admission secondary to fall - History of Present Illness This is a 77-year-old male who presented to the emergency department after falling mechanically in the garage after missing a step and his left leg giving out on him causing him to fall and landed directly onto his arm, left side, and left leg. Patient was admitted under trauma services for a fall and was noted to have multiple left-sided rib fractures on chest CT anteriorly of the lateral ribs 4 through 7 without any displacement. Patient also had multiple other imagings done including a shoulder x-ray which shows an acute comminuted proximal humerus fracture in which orthopedics has been consulted and pending. Patient continues with an Patrick wrap and sling at this time. Patient knee and other x-rays were negative. Patient reports he sees Dr. Layton in the outpatient setting with a past medical history of CVA, dementia, frequent falls, diabetes mellitus, hyperlipidemia, hypertension, frontal lobe strokes 3, prostate cancer. Patient reports he was a former smoker and denies any other illicit drug use or alcohol use. Labs reviewed on admission showed a WBC of 10.1, hemoglobin 14.8, platelets 255, sodium 137, potassium 4.0, creatinine 0.76, blood sugars mildly elevated, lipase was negative at 31. Patient did have a lactic acid this morning of 3.7 and repeat is 2.5. Patient is requiring oxygen at 4 L and does not normally wear oxygen in the outpatient setting. Patient is reporting immense pain on his left side including his left shoulder. PT/OT to evaluate the patient. Patient also had chest CT that was done which showed acute left anterior lateral ribs 4 through 7 fractures without displacement, mild cardiomegaly with pulmonary vascular congestion to correlate with a serum BNP cholelithiasis, and initially with concerns of a pulmonary contusion and pulmonary was consulted for this reason. Will obtain a BNP and hold off on excessive fluids at this time. Would recommend follow-up labs and will await BNP. 07/14/2022 Patient is seen and evaluated in follow-up today currently sitting up in the chair and per nursing staff was almost maximum assist getting him up. Patient continues to report shortness of breath and pain with inspiration and was encouraged to continue using incentive spirometer at least 10 times every hour along with coughing and deep breathing and patient is refusing. Nursing staff reports he has been refusing incentive spirometer as well. Patient reports he will not be doing that as it hurts too much. Discussed with the patient at length about being high risk for developing pneumonia. Discussed with him about pain management and better control and will need to increase activity as tolerated. Patient is medically stable and planning for ECF. Patient does have upper left humeral fracture and evaluated by orthopedics recommending conservative management at this time and will continue sling and pain management. Patient is currently afebrile with no reports of chest pain or palpitations. Patient denies nausea or vomiting and tolerating diet. Would recommend PT/OT therapy daily. 07/15/2022 Patient evaluated on stepdown unit no acute events overnight. Patient reports improved breathing and using incentive spirometer getting to about 750 mls. He reports pain as uncontrolled however does state sitting up in the chair is he lping the pain. He continues with immobilizer sling to his left upper extremity. Patient is issues with intermittent urinary retention requiring a bladder scan and monitoring. Plan is for discharge to rehab on Sunday. He remains afebrile, he is on 2 L of nasal cannula as needed. 07/16/2022 Patient is evaluated today on the medical floor. He does report an improvement in his pain. He is receiving IV Toradol every 6 hours as well as oral tramadol. He does report pain to right knee and right hip after falling prior to admission. Bilateral hip showing no acute process and mild bilateral hip osteoarthrosis. Bilateral knee xray showing no acute osseous pathology and mild tricompartmental osteoarthritic changes bilaterally. Blood glucose remains stable. Patient is afebrile, heart rate 73, blood pressure 127/73, 94% room air. 07/17/2022 Patient is seen and evaluated in follow-up this morning no acute issues overnight. Patient continues to be extremely weak and having right-sided hip pain and orthopedics has been reevaluated recommending an MRI of the hip. Patient was also being given lactulose as patient was having constipation issues although has been refusing and would recommend discontinuing this or making it as needed if having constipation. Patient will be going to ECF once MRI of the hip is done and orthopedic recommendations are made. Patient is currently afebrile with no reports of chest pain or palpitations. Patient x-ray showing osteoarthritic changes with no fractures or dislocations noted. Patient is medically stable and would encouraged to continue using incentive spirometer at least 10 times every hour while awake. 07/18/2022 Patient seen and evaluated in follow-up this morning reports his pain is controlled and continues to be weak and planning for ECF today. Orthopedics reevaluated as patient underwent hip MRI showing a nondisplaced fracture of the superior and inferior pubic rami and also a left superior pubic ramus fracture. Patient reports his pain intensifies when getting up to ambulate and position changes. Orthopedics recommending no surgical interventions at this time and will follow-up closely in the outpatient setting for repeat x-rays and imaging in 1-2 weeks. Patient to be weightbearing as tolerated on the lower extremities and to continue with the left humerus sling and immobilization as much as possible. Patient encouraged to continue using incentive spirometer at the bedside at least 10 times every hour. Patient with some elevated blood sugars normally does not use insulin in the outpatient setting other than weekly ozempic and would recommend continuing the sliding scale and Accu-Cheks before meals nature while in rehab. Patient is currently afebrile with no reports of chest pain or shortness of breath noted. Patient is tolerating diet with no reports of nausea or vomiting noted. Patient is medically stable and will be going to ECF today. Review of systems: Constitutional: No reports of fatigue, fever, or chills Cardiovascular: No reports of chest pain or palpitations Respiratory: No reports of shortness of breath or cough GI: No reports of nausea, vomiting, or diarrhea, reports having bowel movements : No reports of dysuria or retention Neurovascular: reports of generalized weakness and difficulty in ambulation All medications have been reviewed PHYSICAL EXAMINATION: GENERAL: The patient is alert and oriented x3, Well developed, well nourished. Obese HEENT: Pupils are round and equally reacting to light. EOMI. no scleral icterus. No conjunctival pallor. Normocephalic, atraumatic. No pharyngeal erythema. No thyromegaly. CARDIOVASCULAR: S1 and S2 muffled PULMONARY: diminished breath sounds bilaterally with no wheezing or rhonchi noted. ABDOMEN: soft. Nontender on exam. obese. non-distended, normoactive bowel sounds. No palpable organomegaly. MUSCULOSKELETAL: No joint swelling or deformity. Left upper arm in sling and Patrick wrapped currently EXTREMITIES: No cyanosis, clubbing, or pedal edema. NEUROLOGICAL: Gross neurological examination did not reveal any focal deficits. Diffuse weakness SKIN: No rashes. Assessment: Mechanical fall after missing some steps with no loss of consciousness Left anterior lateral rib fractures from 4 through 7 without displacement secondary to fall Left acute comminuted proximal humerus fracture secondary to fall Acute nondisplaced fracture of the left pelvic ramus along with right superior and inferior pelvic rami nondisplaced fractures as noted on MRI Mild lactic acidosis, most likely reactive secondary to fall, improved Diabetes mellitus, type II History of multiple CVAs of the frontal lobe Dementia history Hypertension history Hyperlipidemia GI prophylaxis DVT prophylaxis Full code Plan: Recommend to continue with current medications and management per general surgery services. Patient was admitted as a trauma secondary to mechanical fall with multiple fractures on the left as well as a left humerus fracture Orthopedics re-consulted for right hip pain and was noted to have multiple nondisplaced fractures of the pelvic rami of the left as well as right with no plans for surgical intervention and will follow-up outpatient with orthopedics for repeat imaging in 1-2 weeks Per orthopedics recommend weightbearing as tolerated while ambulating and using assistive devices and would recommend rehab Patient with incentive spirometer at the bedside and encouraged to continue using at least 10 times every hour while awake Recommend Accu-Cheks before meals and at bedtime and using sliding scale Home medications reviewed and resumed as appropriate Thank you kindly for this consultation. We will continue to follow during hospitalization. Patient is being discharged to [facility] today The impression and plan of care has been dictated by Kathleen Coombs, nurse practitioner as directed. Dr. Shelley MD I have performed a history and examination and MDM of this patient, discussed the same with the dictator, and agree with the dictator's assessment and plan as written ,documented as a scribe. Based on total visit time, I have performed more than 50% of the visit. Any additional findings or plans will be noted. Objective - Vital Signs Vital signs: Vital Signs Temp 98.6 F 07/18/22 07:00 Pulse 68 07/18/22 07:00 Resp 18 07/18/22 07:00 BP 173/83 07/18/22 07:00 Pulse Ox 95 07/18/22 07:00 FiO2 Intake & Output 07/17/22 07/18/22 07/18/22 18:59 06:59 18:59 Intake Total 590 Balance 590 Intake: Oral 590 Other: Voiding Method Bedside Commode Bedside Commode Urinal Urinal Diaper Diaper # Voids 1 2 1 # Bowel Movements 1 1 - Labs CBC & Chem 7: 07/15/22 07:27 07/15/22 07:32 Labs: Abnormal Lab Results - Last 24 Hours (Table) 07/17/22 07/17/22 07/17/22 Range/Units 11:03 17:03 19:56 POC Glucose (mg/dL) 189 H 156 H 163 H (70-110) mg/dL 07/18/22 Range/Units 07:01 POC Glucose (mg/dL) 137 H (70-110) mg/dL
[2022-07-18 15:12] LABS: Glucose,Whole Blood 189 mg/dL (70-110)
== END 2022-07-18 15:30 | DRG 184 ==
LOC: EDBD → EC 14:56 → 3SCARD 20:14 → 5NMEDONC 07-15 12:58
PROVIDERS: ADMIT Surgery Plastic and Reconstructive Surgery; ATTEND Surgery Plastic and Reconstructive Surgery
DX: S22.42XA Multiple fractures of ribs, left side, initial encounter for closed fracture (principal); E87.20 Acidosis, unspecified; S32.591A Other specified fracture of right pubis, initial encounter for closed fracture; S32.592A Other specified fracture of left pubis, initial encounter for closed fracture; S42.252A Displaced fracture of greater tuberosity of left humerus, initial encounter for closed fracture; K80.20 Calculus of gallbladder without cholecystitis without obstruction; I10 Essential (primary) hypertension; E11.9 Type 2 diabetes mellitus without complications; E66.9 Obesity, unspecified; Z68.33 Body mass index [BMI] 33.0-33.9, adult; D72.829 Elevated white blood cell count, unspecified; R26.9 Unspecified abnormalities of gait and mobility; W10.8XXA Fall (on) (from) other stairs and steps, initial encounter; F03.90 Unspecified dementia, unspecified severity, without behavioral disturbance, psychotic disturbance, mood disturbance, and anxiety; M16.11 Unilateral primary osteoarthritis, right hip; Y92.015 Private garage of single-family (private) house as the place of occurrence of the external cause; Z79.02 Long term (current) use of antithrombotics/antiplatelets; Z79.1 Long term (current) use of non-steroidal anti-inflammatories (NSAID); Z79.899 Other long term (current) drug therapy; Z85.46 Personal history of malignant neoplasm of prostate; Z86.73 Personal history of transient ischemic attack (TIA), and cerebral infarction without residual deficits; Z87.891 Personal history of nicotine dependence; Z71.3 Dietary counseling and surveillance; Z91.81 History of falling; Z79.84 Long term (current) use of oral hypoglycemic drugs; Z28.21 Immunization not carried out because of patient refusal
CPT/HCPCS: 36415; 70450; 71045; 71250; 72125; 73502; 73521; 80048; 80053; 83036; 83605; 83690; 83735; 83880; 85025; 93005; 94760; 96374; 96375; 96376; 99285